=== PATIENT | male | born 1945 | race Caucasian/White ===

== ENCOUNTER 2017-12-28 12:40 | Emergency (ER) | payer MEDICARE, BC, SELFPAY ==
[2017-12-28 13:07] VITALS: BP 144/90; PULSE 85; RESP 20; TEMP 36.9; O2SAT 96
--- NOTE | 2017-12-28 14:02 | DI.RAD.S_ITS ---
PROCEDURE: XR CHEST 2V INDICATIONS: suspected sepsis TECHNIQUE: 2 views of the chest were acquired. COMPARISON: None. FINDINGS: Surgical changes and devices: None. Lungs and pleura: No pleural effusions or pneumothorax. Lungs are clear. Mediastinum: Mediastinal contours are normal. Heart size is normal. Bones and chest wall: No suspicious bony abnormalities. Soft tissues appear unremarkable. IMPRESSION: No acute pulmonary process. Dictated by: Lida Munguia M.D. on 12/28/2017 at 14:36 Approved by: Lida Munguia M.D. on 12/28/2017 at 14:37
[2017-12-28 14:10] LABS: INR 2.3 (0.9-1.3); Prothrombin Time 25.6 SECONDS (10.1-12.7)
[2017-12-28 14:13] LABS: PTT Partial Thromboplastin Tim 40 SECONDS (26.4-36.2)
[2017-12-28 14:17] LABS: Lactate (Lactic Acid) 2.2 mmol/L (0.7-2.1)
[2017-12-28 14:20] LABS: Add Manual Diff / Slide Review NO; Basophils Percent Auto 0.8 % (0-2); Eosinophils Percent Auto 1.5 % (2-4); Hematocrit 55.4 % (41-53); Hemoglobin 18.9 g/dL (13.5-17.5); Lymphocytes Percent Auto 23.7 % (25-40); Mean Corpuscular Hemoglobin 30.8 PG (26-34); Mean Corpuscular Volume 90.5 fL (80-100); Monocytes Percent Auto 7.3 % (3-14); Neutrophils Absolute Auto 4400 /uL (3000-5900); Neutrophils Percent Auto 66.7 % (50-75); Platelet Count 225 X10^3/uL (150-400); Red Blood Cell Count 6.12 X10^6/uL (4.5-5.9); Red Cell Distribution Width 13.7 % (11.6-14.8); White Blood Cell Count 6.6 X10^3/uL (4.5-11.0)
[2017-12-28 14:21] LABS: Alanine Aminotransferase 57 IU/L (21-72); Albumin 4.8 g/dL (3.5-5.0); Albumin Globulin Ratio 1.6 (1.0-2.8); Alkaline Phosphatase 85 U/L (38-126); Aspartate Aminotransferase 72 IU/L (17-59); BUN Creatinine Ratio 22.2 (6-22); Bilirubin Total 1.1 mg/dL (0.2-1.3); Blood Urea Nitrogen 20 mg/dL (9-20); Calcium 9.6 mg/dL (8.4-10.2); Carbon Dioxide 26 mmol/L (22-32); Chloride 102 mmol/L (98-107); Estimated Glomerular Filt Rate > 60.0 mL/min (>60); Glucose 101 mg/dL (80-110); HEMOLYSIS 43 (0-50); Lipase 177 U/L (23-300); Potassium 4.1 mmol/L (3.4-5.1); Sodium 142 mmol/L (137-145); Total Protein 7.8 g/dL (6.3-8.2)
[2017-12-28 14:36] LABS: Procalcitonin 0.07 ng/mL (<0.5)
--- NOTE | 2017-12-28 14:48 | PC.NURSE ---
Done from lobby
[2017-12-28] MEDS: SODIUM CHLORIDE 0.9% 1,000 ML 1000 ML IV (15:59)
[2017-12-28 16:53] LABS: B Type Natriuretic Peptide < 29.4 (<100)
[2017-12-28 18:05] LABS: Reflexed Lactate in 2 Hours Y
--- NOTE | 2017-12-28 18:24 | ED_ITS ---
HPI - Weakness General Chief complaint: Weakness Stated complaint: states he has no energy,dizziness,unstable on feet Time Seen by Provider: 12/28/17 18:11 Source: patient Mode of arrival: ambulatory Limitations: no limitations History of Present Illness HPI Narrative: Patient is a 72-year-old male presents with generalized weakness. History of AFib in Darsh[place] Romero. He was followed closely but the [facility] for Darshana Romero he was seen and evaluated 1 month ago for possible exacerbation of Darshana Romero on his medication was increased from 4 tablets to 5 tablets once a day. He also recently had a dental infection and was put on antibiotics he is no longer on antibiotics. He has had a steady decline and weakness however over the last 1 week it has been worse. He was sent here from his primary care office for evaluation. He had a fever last week but does not have any now. He does have a dry non productive cough worse with deep breathing which has been going on. He does get some shortness of breath with exertion he denies any chest pain no nausea vomiting or abdominal pain. He says he has actually lost 30 lb in the last 1 month. He has not had any change in his diuretic. MD Complaint: generalized weakness Related Data Home Medications Medication Instructions Recorded Confirmed Inv 3, 4-Diaminophyridine Base 1 tab PO QID 12/28/17 12/28/17 allopurinol 300 mg PO DAILY 12/28/17 12/28/17 armodafinil [Nuvigil] 75 mg PO QAM 12/28/17 12/28/17 benazepril 10 mg PO DAILY 12/28/17 12/28/17 digoxin 1 tab PO DAILY 12/28/17 12/28/17 furosemide 1 tab PO SEEINSTR 12/28/17 12/28/17 metoprolol succinate 150 mg PO DAILY 12/28/17 12/28/17 mycophenolate mofetil 2 tab PO BID 12/28/17 12/28/17 pyridostigmine bromide 1 tab PO TID 12/28/17 12/28/17 spironolactone 12.5 mg PO DAILY 12/28/17 12/28/17 tamsulosin 1 cap PO BEDTIME 12/28/17 12/28/17 testosterone cypionate 1 ml IM Q2W 12/28/17 12/28/17 [Depo-Testosterone] torsemide 20 mg PO SEEINSTR 12/28/17 12/28/17 tramadol-acetaminophen 1 tab PO Q4-6H PRN 12/28/17 12/28/17 warfarin 1 tab PO DAILY 12/28/17 12/28/17 Previous Rx's Medication Instructions Recorded albuterol sulfate 1 puff INHALATION Q4-6H PRN #8.5 12/28/17 gram Review of Systems Review of Systems All systems reviewed & are unremarkable except as noted in HPI and below Constitutional Denies body ache(s), Denies chills, Denies difficulty sleeping, Denies increased appetite and Reports lethargy Cardiovascular Denies chest pain, Denies irregular heart rhythm, Denies lightheadedness, Denies palpitations and Denies orthopnea Respiratory Reports as per HPI Gastrointestinal Gastrointestinal: Denies abdominal pain, Denies change in bowel habits, Denies diarrhea, Denies nausea and Denies vomiting Musculoskeletal Denies back pain, Denies muscle weakness, Denies numbness and Denies tingling Integumentary/Breasts Denies pruritus, Denies erythema, Denies rash and Denies wounds Neurologic Denies numbness and Denies tingling Endocrine Denies palpitations [facility] Social History Smoking Status: Never smoker Exam Initial Vital Signs Initial Vital Signs: Vital Signs Temperature 98.4 F 12/28/17 13:07 Pulse Rate 85 12/28/17 13:07 Respiratory Rate 12/28/17 13:07 Blood Pressure 144/90 H 12/28/17 13:07 Pulse Oximetry 96 12/28/17 13:07 GENERAL: Alert well-appearing elderly male in no acute distress HEENT: Head atraumatic,EOMI, pupils reactive, face symmetric, [moist] mucous membranes CARDIOVASCULAR: Regular rate and rhythm without murmurs, rubs or gallops. RESPIRATORY: Breath sounds equal bilaterally, no wheezes rales or rhonchi. Cough with deep breath dry hacking ABDOMEN: Soft, nontender. Normoactive bowel sounds all 4 quadrants. No guarding or rebound. EXTREMITIES: Normal range of motion, no clubbing or edema. Neurovascularly intact NEUROLOGICAL: Alert and oriented x4.Normal gait and speech. Cranial nerves II through XII grossly intact. Senior [employer] strength equal bilaterally SKIN: Warm, dry, no laceration, no petechiae, no rashes or lesions. Course Orders Ordered: ED Orders 12/28/17 13:20 Complete Blood Count AUTO DIFF Stat Comprehensive Metabolic Panel Stat Lactate (Lactic Acid) Stat Lipase Stat Partial Thromboplastin Time Stat Procalcitonin Stat Prothrombin Time INR Stat 12/28/17 14:02 XR chest 2V Stat Blood Culture Stat 12/28/17 18:19 Lactate 4HR (Lactic Acid Rflx) Stat Discontinued Medications Albuterol (Ventolin) 2.5 mg INH NOW ONE Stop: 12/28/17 18:35 Last Admin: 12/28/17 18:39 Dose: 2.5 mg Sodium Chloride (Normal Saline 0.9%) 1,000 mls @ 1,000 mls/hr IV BOLUS ONE Stop: 12/28/17 15:01 Last Infusion: 12/28/17 17:47 Dose: 0 mls/hr Admin: 12/28/17 15:59 Dose: 1,000 mls/hr Vital Signs - 8 hr 12/28/17 13:07 12/28/17 18:37 12/28/17 18:41 Temperature 98.4 F Pulse Rate 85 76 76 Respiratory Rate 20 20 14 Blood Pressure 144/90 H Blood Pressure [Right Arm] 118/89 Pulse Oximetry 96 94 97 12/28/17 19:19 Temperature Pulse Rate 70 Respiratory Rate 20 Blood Pressure Blood Pressure [Right Arm] 120/79 Pulse Oximetry 98 MDM - Weakness Lab Data Attestation: I reviewed the patient's lab results. Result diagrams: 12/28/17 13:20 12/28/17 13:20 Lab Results 12/28/17 12/28/17 12/28/17 Range/Units 13:20 13:20 13:20 WBC 6.6 (4.5-11.0) X10^3/uL RBC 6.12 H (4.5-5.9) X10^6/uL Hgb 18.9 H (13.5-17.5) g/dL Hct 55.4 H (41-53) % MCV 90.5 (80-100) fL MCH 30.8 (26-34) PG MCHC 34.0 (30-36) % RDW 13.7 (11.6-14.8) % Plt Count 225 (150-400) X10^3/uL Neut % (Auto) 66.7 (50-75) % Lymph % (Auto) 23.7 L (25-40) % Motley % (Auto) 7.3 (3-14) % Eos % (Auto) 1.5 L (2-4) % Baso % (Auto) 0.8 (0-2) % Neut # (Auto) 4400 (2606-0611) /uL PT 25.6 H (10.1-12.7) SECONDS INR 2.3 H (0.9-1.3) APTT 40 H (26.4-36.2) SECONDS Sodium (137-145) mmol/L Potassium (3.4-5.1) mmol/L Chloride (98-107) mmol/L Carbon Dioxide (22-32) mmol/L BUN (9-20) mg/dL Creatinine (0.66-1.25) mg/dL Estimated GFR (>60) mL/min BUN/Creatinine Ratio (6-22) Glucose (80-110) mg/dL Lactate (0.7-2.1) mmol/L Calcium (8.4-10.2) mg/dL Total Bilirubin (0.2-1.3) mg/dL AST (17-59) IU/L ALT (21-72) IU/L Alkaline Phosphatase (38-126) U/L B-Natriuretic Peptide (<100) Total Protein (6.3-8.2) g/dL Albumin (3.5-5.0) g/dL Globulin (1.7-4.1) g/dL Albumin/Globulin Ratio (1.0-2.8) Lipase (23-300) U/L Procalcitonin 0.07 (<0.5) ng/mL 12/28/17 12/28/17 12/28/17 Range/Units 13:20 13:20 18:19 WBC (4.5-11.0) X10^3/uL RBC (4.5-5.9) X10^6/uL Hgb (13.5-17.5) g/dL Hct (41-53) % MCV (80-100) fL MCH (26-34) PG MCHC (30-36) % RDW (11.6-14.8) % Plt Count (150-400) X10^3/uL Neut % (Auto) (50-75) % Lymph % (Auto) (25-40) % Motley % (Auto) (3-14) % Eos % (Auto) (2-4) % Baso % (Auto) (0-2) % Neut # (Auto) (6250-0986) /uL PT (10.1-12.7) SECONDS INR (0.9-1.3) APTT (26.4-36.2) SECONDS Sodium 142 (137-145) mmol/L Potassium 4.1 (3.4-5.1) mmol/L Chloride 102 (98-107) mmol/L Carbon Dioxide 26 (22-32) mmol/L BUN 20 (9-20) mg/dL Creatinine 0.90 (0.66-1.25) mg/dL Estimated GFR > 60.0 (>60) mL/min BUN/Creatinine Ratio 22.2 H (6-22) Glucose 101 (80-110) mg/dL Lactate 2.2 H 1.6 (0.7-2.1) mmol/L Calcium 9.6 (8.4-10.2) mg/dL Total Bilirubin 1.1 (0.2-1.3) mg/dL AST 72 H (17-59) IU/L ALT 57 (21-72) IU/L Alkaline Phosphatase 85 (38-126) U/L B-Natriuretic Peptide (<100) Total Protein 7.8 (6.3-8.2) g/dL Albumin 4.8 (3.5-5.0) g/dL Globulin 3.0 (1.7-4.1) g/dL Albumin/Globulin Ratio 1.6 (1.0-2.8) Lipase 177 (23-300) U/L Procalcitonin (<0.5) ng/mL 12/28/17 Range/Units Unknown WBC (4.5-11.0) X10^3/uL RBC (4.5-5.9) X10^6/uL Hgb (13.5-17.5) g/dL Hct (41-53) % MCV (80-100) fL MCH (26-34) PG MCHC (30-36) % RDW (11.6-14.8) % Plt Count (150-400) X10^3/uL Neut % (Auto) (50-75) % Lymph % (Auto) (25-40) % Motley % (Auto) (3-14) % Eos % (Auto) (2-4) % Baso % (Auto) (0-2) % Neut # (Auto) (4397-3132) /uL PT (10.1-12.7) SECONDS INR (0.9-1.3) APTT (26.4-36.2) SECONDS Sodium (137-145) mmol/L Potassium (3.4-5.1) mmol/L Chloride (98-107) mmol/L Carbon Dioxide (22-32) mmol/L BUN (9-20) mg/dL Creatinine (0.66-1.25) mg/dL Estimated GFR (>60) mL/min BUN/Creatinine Ratio (6-22) Glucose (80-110) mg/dL Lactate (0.7-2.1) mmol/L Calcium (8.4-10.2) mg/dL Total Bilirubin (0.2-1.3) mg/dL AST (17-59) IU/L ALT (21-72) IU/L Alkaline Phosphatase (38-126) U/L B-Natriuretic Peptide < 29.4 (<100) Total Protein (6.3-8.2) g/dL Albumin (3.5-5.0) g/dL Globulin (1.7-4.1) g/dL Albumin/Globulin Ratio (1.0-2.8) Lipase (23-300) U/L Procalcitonin (<0.5) ng/mL Urine Dip Bedside Urine Glucose Negative Bedside Urine Bilirubin - Negative Bedside Urine Ketone - Negative Urine Specific [place] 1.015 Bedside Urine Occult Blood - Negative Bedside Urine pH 6.0 Bedside Urine Protein - Negative Bedside Urine Urobilinogen - Negative Bedside Urine Nitrite - Negative Bedside Urine Leukocytes - Negative Esterase Imaging Data Chest x-ray: Radiologist's impression: PROCEDURE: XR CHEST 2V INDICATIONS: suspected sepsis TECHNIQUE: 2 views of the chest were acquired. COMPARISON: None. FINDINGS: Surgical changes and devices: None. Lungs and pleura: No pleural effusions or pneumothorax. Lungs are clear. Mediastinum: Mediastinal contours are normal. Heart size is normal. Bones and chest wall: No suspicious bony abnormalities. Soft tissues appear unremarkable. IMPRESSION: No acute pulmonary process. Dictated by: Lida Munguia M.D. on 12/28/2017 at 14:36 ECG Data Attestation: I personally reviewed and interpreted this ECG as follows: Prior ECG tracings: not available for review Interpretation: Normal sinus rhythm rate [address] changes no priors to compare no Q-waves, no T-wave inversions. MDM Narrative Medical decision making narrative: The patient initial lactic acid mildly elevated at 2.2 BP after 1 L bolus is 1.6. He has no leukocytosis signs or symptoms of infection. X-ray is clear. He does have quite a bit of a dry bronchospasm coughing which does improve with albuterol. He has no hypoxia, and does not have signs or symptoms consistent with CHF or PE or ACS. He is a little hemoconcentrated may be sign of slight dehydration. He has urinated many times with this 1 L. Recommend that he follow up with his regular doctor. At this point he does feel little bit better than when he came in. This has been a slow ongoing gradual decline. Discharge Plan Departure Patient Disposition: Home Clinical Impression: Mild intermittent reactive airway disease Instructions: DI for Reactive Airway Disease-Adult Activity Restrictions/Additional Instructions: *You have been diagnosed with reactive airway disease *What to do: At this time that chest x-ray and blood work are within normal limits *Continue to take medications as directed Albuterol with inhaler every 4 hr if needed for coughing spells or shortness of breath *Follow up with your primary care provider in 2-3 days, follow up with [facility] with you're specialist *Return to ER if you should have fever, increasing weakness, increasing shortness of breath any new, worsening or concerning symptoms Prescriptions: New albuterol sulfate 90 mcg/actuation HFA aerosol inhaler 1 puff INHALATION Q4-6H PRN (Reason: shortness of breath or wheezing) Qty: 8.5 RF: 0 No Action torsemide 20 mg tablet 20 mg PO SEEINSTR RF: 0 tramadol-acetaminophen 37.5-325 mg tablet 1 tab PO Q4-6H PRN (Reason: pain from root canal) RF: 0 metoprolol succinate 100 mg tablet extended release 24 hr 150 mg PO DAILY RF: 0 spironolactone 25 mg tablet 12.5 mg PO DAILY RF: 0 mycophenolate mofetil 500 mg tablet 2 tab PO BID RF: 0 tamsulosin 0.4 mg capsule 1 cap PO BEDTIME RF: 0 furosemide 80 mg tablet 1 tab PO SEEINSTR RF: 0 pyridostigmine bromide 60 mg tablet 1 tab PO TID RF: 0 warfarin 5 mg tablet 1 tab PO DAILY RF: 0 benazepril 20 mg tablet 10 mg PO DAILY RF: 0 allopurinol 300 mg tablet 300 mg PO DAILY RF: 0 digoxin 125 mcg tablet 1 tab PO DAILY RF: 0 testosterone cypionate [Depo-Testosterone] 200 mg/mL oil 1 ml IM Q2W RF: 0 armodafinil [Nuvigil] 150 mg Tablet 75 mg PO QAM RF: 0 Inv 3, 4-Diaminophyridine Base 10 MG tablet 1 tab PO QID RF: 0
[2017-12-28 18:37] VITALS: BP 118/89; PULSE 76; RESP 20; O2SAT 94
[2017-12-28 18:37] LABS: Lactate 2HR (Lactic Acid Rflx) 1.6 mmol/L (0.7-2.1)
[2017-12-28] MEDS: ALBUTEROL 2.5 MG/3 ML NEB (ADULT) INH (18:39)
[2017-12-28 18:41] VITALS: PULSE 76; RESP 14; O2SAT 97
[2017-12-28 19:19] VITALS: BP 120/79; PULSE 70; RESP 20; O2SAT 98
== END 2017-12-28 19:57 | disposition home or self-care (01) ==
PROVIDERS: Emergency Medicine; Emergency Provider Emergency Medicine
DX: J45.20 Mild intermittent asthma, uncomplicated (principal); R53.1 Weakness
CPT/HCPCS: 71046; 80053; 81003; 83605; 83690; 83880; 84145; 85025; 85610; 85730; 87040; 93005; 94640; 96360; 96361; 99283; 99285; J7613

== ENCOUNTER → 2018-02-22 14:04 | Outpatient (CLI) | payer MEDICARE, BC, SELFPAY ==
[2018-02-22 15:29] LABS: INR 2.2 (0.9-1.3); Prothrombin Time 24.5 SECONDS (10.1-12.7)
== END ==
PROVIDERS: Visit Provider Family Medicine
DX: I48.1 Persistent atrial fibrillation (principal)
CPT/HCPCS: 36415; 85610

== ENCOUNTER → 2020-08-10 11:23 | Outpatient (CLI) | payer MEDICARE, BC, SELFPAY ==
[2020-08-10 13:54] LABS: Bacteria Urine Many (>30); Culture Indicated Urine Specimen Cultured; RBC Urine 5-10/HPF (0-5/HPF); WBC Urine 5-10/HPF (0-5/HPF)
[2020-08-10 13:58] LABS: Add Manual Diff / Slide Review NO; Basophils Absolute Auto 100 /uL (0-100); Basophils Percent Auto 0.8 % (0-2); Eosinophils Absolute Auto 100 /uL (0-450); Eosinophils Percent Auto 1.9 % (2-4); Hematocrit 41.6 % (41-53); Hemoglobin 14.1 g/dL (13.5-17.5); Lymphocytes Absolute Auto 2000 /uL (1100-4500); Lymphocytes Percent Auto 29.2 % (25-40); Mean Corpuscular HGB Conc 33.9 % (30-36); Mean Corpuscular Hemoglobin 31.1 PG (26-34); Monocytes Absolute Auto 600 /uL (0-900); Monocytes Percent Auto 9.5 % (3-14); Neutrophils Absolute Auto 3900 /uL (1500-7000); Neutrophils Percent Auto 58.6 % (50-75); Platelet Count 183 X10^3/uL (150-400); Red Blood Cell Count 4.52 X10^6/uL (4.5-5.9); Red Cell Distribution Width 13.5 % (11.6-14.8); White Blood Cell Count 6.7 X10^3/uL (4.5-11.0)
[2020-08-10 14:15] LABS: Alanine Aminotransferase 34 IU/L (<50); Albumin 4.3 g/dL (3.5-5.0); Albumin Globulin Ratio 1.6 (1.0-2.8); Alkaline Phosphatase 127 U/L (38-126); Aspartate Aminotransferase 50 IU/L (17-59); BUN Creatinine Ratio 19.6 (6-22); Bilirubin Total 0.9 mg/dL (0.2-1.3); Blood Urea Nitrogen 20 mg/dL (9-20); Calcium 9.5 mg/dL (8.4-10.2); Carbon Dioxide 30 mmol/L (22-32); Chloride 103 mmol/L (98-107); Estimated Glomerular Filt Rate > 60.0 mL/min (>60); Globulin 2.7 g/dL (1.7-4.1); Glucose 83 mg/dL (80-110); HEMOLYSIS < 15 (0-50); Potassium 4.4 mmol/L (3.4-5.1); Sodium 140 mmol/L (137-145)
== END ==
PROVIDERS: Referring Provider Student in an Organized Health Care Education/Training Program; Visit Provider Student in an Organized Health Care Education/Training Program
DX: R31.9 Hematuria, unspecified (principal); N39.0 Urinary tract infection, site not specified
CPT/HCPCS: 36415; 80053; 81015; 85025; 87077; 87086; 87186

== ENCOUNTER 2020-12-14 14:30 | Emergency (ER) | payer MEDICARE, BC, SELFPAY ==
[2020-12-14] VITALS (87 sets, daily range): BP systolic 76–137; BP diastolic 43–72; PULSE 22–65; RESP 4–40; TEMP 36.6; O2SAT 86–100
[2020-12-14] MEDS: ATROPINE 1 MG/10 ML SYRINGE IV (14:32)
--- NOTE | 2020-12-14 14:34 | DI.RAD.S_ITS ---
PROCEDURE: XR CHEST 1V INDICATIONS: bradycardic TECHNIQUE: One view of the chest was acquired. COMPARISON: [facility], CR, XR CHEST 2V, 12/28/2017, 13:54. FINDINGS: Surgical changes and devices: None. Defibrillator pads are seen. Lungs and pleura: An incomplete inspiratory result is noted, causing a crowded appearance to the lung markings. No focal infiltrates are seen. No pneumothorax or significant pleural effusions are seen. Diffuse fatty liver infiltration is noted. Mediastinum: Mediastinal contours appear normal. Heart size is mildly enlarged. Bones and chest wall: No suspicious bony lesions. Age-appropriate bony degenerative changes are seen. Overlying soft tissues appear unremarkable. IMPRESSION: Low lung volumes, with mild interstitial prominence, likely related to artifact or mild pulmonary edema. Dictated by: Diony Tolentino M.D. on 12/14/2020 at 14:18 Approved by: Diony Tolentino M.D. on 12/14/2020 at 14:19
--- NOTE | 2020-12-14 14:40 | DI.CT.S_ITS ---
PROCEDURE: CT HEAD/BRAIN WO CON INDICATIONS: syncope TECHNIQUE: Noncontrast 4.5 mm thick angled axial sections acquired from the foramen magnum to the vertex, with coronal and sagittal reformats. For radiation dose reduction, the following was used: automated exposure control, adjustment of mA and/or kV according to patient size. COMPARISON: None. FINDINGS: Image quality: Excellent. CSF spaces: Basal cisterns are patent. No extra-axial fluid collections. The ventricles are symmetric in size and shape. Brain: There is mild focal low density seen involving the left emily, as on series 2, image 13. No intracranial bleeds or masses. There is cerebral volume loss for age, with resultant ventricular and sulcal prominence. There are periventricular and deep white matter chronic small vessel ischemic changes. There is intracranial internal carotid artery atherosclerosis. Skull and face: Calvarium and visualized facial bones appear intact, without suspicious lesions. Sinuses: Visualized sinuses and mastoids are clear. IMPRESSION: No acute intracranial hemorrhage is seen. Focal low density can be seen involving the left emily. Differential diagnosis includes artifact and subacute infarction. If it would be helpful for clinical management decision making, please consider a dedicated brain MRI for further evaluation (assuming that there is no contraindication). Dictated by: Diony Tolentino M.D. on 12/14/2020 at 14:27 Approved by: Diony Tolentino M.D. on 12/14/2020 at 14:29
[2020-12-14 14:43] LABS: Add Manual Diff / Slide Review NO; Basophils Absolute Auto 100 /uL (0-100); Basophils Percent Auto 1.1 % (0-2); Eosinophils Absolute Auto 200 /uL (0-450); Eosinophils Percent Auto 2.6 % (2-4); Hematocrit 41.9 % (41-53); Hemoglobin 13.7 g/dL (13.5-17.5); Lymphocytes Absolute Auto 2100 /uL (1100-4500); Lymphocytes Percent Auto 26.5 % (25-40); Mean Corpuscular HGB Conc 32.8 % (30-36); Mean Corpuscular Hemoglobin 30.7 PG (26-34); Mean Corpuscular Volume 93.4 fL (80-100); Monocytes Absolute Auto 900 /uL (0-900); Neutrophils Absolute Auto 4600 /uL (1500-7000); Neutrophils Percent Auto 58.8 % (50-75); Platelet Count 184 X10^3/uL (150-400); Red Blood Cell Count 4.49 X10^6/uL (4.5-5.9); Red Cell Distribution Width 13.9 % (11.6-14.8); White Blood Cell Count 7.8 X10^3/uL (4.5-11.0)
[2020-12-14 14:50] LABS: Magnesium 2.5 mg/dL (1.6-2.3); Phosphorous 3.7 mg/dL (2.3-3.7)
[2020-12-14 14:51] LABS: Alanine Aminotransferase 30 IU/L (<50); Albumin 4.7 g/dL (3.5-5.0); Albumin Globulin Ratio 1.7 (1.0-2.8); Alkaline Phosphatase 126 U/L (38-126); Aspartate Aminotransferase 51 IU/L (17-59); BUN Creatinine Ratio 27.5 (6-22); Bilirubin Total 0.8 mg/dL (0.2-1.3); Blood Urea Nitrogen 47 mg/dL (9-20); Calcium 9.3 mg/dL (8.4-10.2); Carbon Dioxide 23 mmol/L (22-32); Chloride 108 mmol/L (98-107); Creatine Kinase 227 U/L (55-170); Estimated Glomerular Filt Rate 39.2 mL/min (>60); Globulin 2.8 g/dL (1.7-4.1); Glucose 106 mg/dL (80-110); Lipase 365 U/L (23-300); Sodium 140 mmol/L (137-145); Total Protein 7.5 g/dL (6.3-8.2)
[2020-12-14 14:55] LABS: Potassium 5.1 mmol/L (3.4-5.1)
[2020-12-14] MEDS: GLUCAGON,HUMAN RECOMBINANT 1 MG/ML VIAL 5 MG IV (14:56)
[2020-12-14] MEDS: SODIUM CHLORIDE 0.9% 1,000 ML 1000 ML IV (14:57)
[2020-12-14 14:59] LABS: NT-proBNP (BNP-Adult 18+) 2910 pg/mL (<450)
[2020-12-14] MEDS: ATROPINE 1 MG/10 ML SYRINGE 0.5 MG IV (15:00)
[2020-12-14 15:02] LABS: Troponin I 0.016 ng/mL (0.01-0.034)
[2020-12-14 15:02] LABS: INR 1.1 (0.9-1.3); Prothrombin Time 12.6 SECONDS (10.1-12.7)
--- NOTE | 2020-12-14 15:04 | ED_ITS ---
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 He was found by EMS have a heart rate in the 20s. He is awake and alert for overall extremely poor historian. 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 He was found on the floor by a good friend who called EMS Related Data Home Medications Medication Instructions Recorded Confirmed Inv 3, 4-Diaminophyridine Base 1 tab PO QID 12/28/17 11/17/20 allopurinol 300 mg tablet 300 mg PO DAILY 12/28/17 11/17/20 armodafinil 150 mg tablet (Nuvigil) 75 mg PO QAM 12/28/17 11/17/20 benazepril 20 mg tablet 10 mg PO DAILY 12/28/17 11/17/20 digoxin 125 mcg (0.125 mg) tablet 1 tab PO DAILY 12/28/17 11/17/20 furosemide 80 mg tablet 1 tab PO SEEINSTR 12/28/17 11/17/20 metoprolol succinate 100 mg 150 mg PO DAILY 12/28/17 11/17/20 tablet,extended release 24 hr mycophenolate mofetil 500 mg tablet 2 tab PO BID 12/28/17 11/17/20 pyridostigmine bromide 60 mg tablet 1 tab PO TID 12/28/17 11/17/20 spironolactone 25 mg tablet 12.5 mg PO DAILY 12/28/17 11/17/20 tamsulosin 0.4 mg capsule 1 cap PO BEDTIME 12/28/17 11/17/20 testosterone cypionate 200 mg/mL 1 ml IM Q2W 12/28/17 11/17/20 intramuscular oil torsemide 20 mg tablet 20 mg PO SEEINSTR 12/28/17 11/17/20 tramadol 37.5 mg-acetaminophen 325 1 tab PO Q4-6H PRN 12/28/17 11/17/20 mg tablet warfarin 5 mg tablet 1 tab PO DAILY 12/28/17 11/17/20 Previous Rx's Medication Instructions Recorded albuterol sulfate 90 mcg/actuation 1 puff INHALATION Q4-6H PRN #8.5 12/28/17 aerosol inhaler gram Allergies Allergy/AdvReac Type Severity Reaction Status Date / Time testosterone Allergy Unknown Verified 12/14/20 14:45 Review of Systems Review of Systems Narrative: Limited due to medical condition Cardiovascular Cardiovascular: Reports as per HPI, Reports syncope, Denies leg edema and Denies lightheadedness Neurologic Neurologic: Reports syncope Patient History Social History Smoking Status: Never smoker Smoking Status: Never smoker alcohol intake frequency: holidays/special occasions only Substance Use Type: does not use Exam Initial Vital Signs Initial Vital Signs: Vital Signs Temperature 98 F 12/14/20 14:30 Pulse Rate 22 L 12/14/20 14:30 Respiratory Rate 14 12/14/20 14:30 Blood Pressure 117/57 L 12/14/20 14:30 Pulse Oximetry 100 12/14/20 14:30 GENERAL: Alert male follows commands slightly diaphoretic HEENT: Head atraumatic,EOMI, pupils reactive, CARDIOVASCULAR: Bradycardic no murmur RESPIRATORY: Breath sounds equal bilaterally, no wheezes rales or rhonchi. ABDOMEN: Soft, nontender. Normoactive bowel sounds all 4 quadrants. No guarding or rebound. EXTREMITIES: Normal range of motion, no clubbing or edema. 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 SKIN: Warm, dry, no laceration, no petechiae, no rashes or lesions. Procedures Central Line Placement Right IJ: Time Out Performed: Yes Patient Placed on Monitor/Pulse Ox: Yes Central Line Prep: Chlorhexidine scrub Local Anesthetic: lidocaine 1% Amount of anesthesia used (mL): 5 Ultrasound Used for Placement: Yes Central Line Lumen Inserted: triple Post Procedure: sutured in place, good blood return, all ports aspirated, flushed, capped and sterile dressing applied Post Procedure X-Ray: tip of catheter in good position Patient Tolerated Procedure: Well Course Orders Ordered: ED Orders 12/14/20 14:00 Complete Blood Count AUTO DIFF Stat Comprehensive Metabolic Panel Stat Lipase Stat Magnesium Stat NT-proBNP (BNP-Adult 18+) Stat Phosphorous Stat Troponin & CK Cardiac Panel Stat 12/14/20 14:30 COVID19 -Nasal swab/Pre-Proc Stat 12/14/20 14:34 XR chest 1V Stat EKG-12 Lead Stat 12/14/20 14:40 CT head/brain wo con Stat 12/14/20 14:45 DIG [Digoxin] Stat Partial Thromboplastin Time Stat Prothrombin Time INR Stat 12/14/20 14:50 Urinalysis and Microscopic Stat 12/14/20 15:00 Lactate (Lactic Acid) Stat 12/14/20 16:00 XR chest 1V Stat Discontinued Medications Atropine Sulfate (Atropine 1 Mg/10 Ml Syringe) 0.5 mg IV NOW ONE Stop: 12/14/20 14:58 Last Admin: 12/14/20 15:00 Dose: 0.5 mg Documented by: SHIVANI Furosemide (Furosemide 40 Mg/4 Ml Vial) 40 mg IV NOW ONE Stop: 12/14/20 17:23 Last Admin: 12/14/20 17:25 Dose: 40 mg Documented by: SHIVANI Glucagon (Glucagon,Human Recombinant 1 Mg/Ml Vial) 5 mg IV NOW ONE Stop: 12/14/20 14:36 Last Admin: 12/14/20 14:56 Dose: 1 mg Documented by: SHIVANI Sodium Chloride (Normal Saline 0.9%) 1,000 mls @ 1,000 mls/hr IV CONT PIPPA Last Infusion: 12/14/20 17:31 Dose: 0 mls/hr Documented by: Infusion: 12/14/20 17:00 Dose: 50 mls/hr Documented by: Infusion: 12/14/20 15:15 Dose: 150 mls/hr Documented by: Admin: 12/14/20 14:57 Dose: 1,000 mls/hr Documented by: SHIVANI Dopamine HCl/Dextrose (Dopamine 400 Mg-D5w 250 Ml) 400 mg in 250 mls @ 23.156 mls/hr IV TITRATE PIPPA; Protocol Last Titration: 12/14/20 17:32 Dose: 0 mcg/kg/min, 0 mls/hr Documented by: Titration: 12/14/20 17:00 Dose: 7.5 mcg/kg/min, 34.734 mls/hr Documented by: Titration: 12/14/20 16:00 Dose: 5 mcg/kg/min, 23.156 mls/hr Documented by: Titration: 12/14/20 15:43 Dose: 10 mcg/kg/min, 46.313 mls/hr Documented by: Admin: 12/14/20 15:34 Dose: 5 mcg/kg/min, 23.156 mls/hr Documented by: SHIVANI Vital Signs Vital signs: Vital Signs - 8 hr 12/14/20 14:30 12/14/20 14:48 12/14/20 14:49 Temperature 98 F Pulse Rate 22 L 43 L 63 Respiratory Rate 14 30 H 18 Blood Pressure 117/57 L 127/62 Pulse Oximetry 100 97 12/14/20 14:50 12/14/20 14:55 12/14/20 14:56 Temperature Pulse Rate 40 L 35 L 34 L Respiratory Rate 29 H 25 H 23 Blood Pressure 111/55 L 97/55 L Pulse Oximetry 95 100 100 12/14/20 15:00 12/14/20 15:05 12/14/20 15:08 Temperature Pulse Rate 34 L 45 L 43 L Respiratory Rate 25 H 23 27 H Blood Pressure 99/52 L 120/60 Pulse Oximetry 100 100 100 12/14/20 15:10 12/14/20 15:14 12/14/20 15:15 Temperature Pulse Rate 41 L 43 L 42 L Respiratory Rate 25 H 40 H 40 H Blood Pressure 137/64 Pulse Oximetry 100 100 12/14/20 15:23 12/14/20 15:25 12/14/20 15:30 Temperature Pulse Rate 35 L 36 L 36 L Respiratory Rate 20 30 H 29 H Blood Pressure 104/54 L 110/58 L Pulse Oximetry 97 100 100 12/14/20 15:32 12/14/20 15:35 12/14/20 15:40 Temperature Pulse Rate 31 L 31 L 32 L Respiratory Rate 23 26 H Blood Pressure 121/59 L 105/53 L Pulse Oximetry 99 97 94 12/14/20 15:41 12/14/20 15:42 12/14/20 15:44 Temperature Pulse Rate 39 L 40 L 47 L Respiratory Rate 17 17 5 L Blood Pressure 80/46 L 81/43 L 76/43 L Pulse Oximetry 98 96 95 12/14/20 15:45 12/14/20 15:47 12/14/20 15:48 Temperature Pulse Rate 47 L 47 L 48 L Respiratory Rate 4 L 5 L 6 L Blood Pressure 86/48 L 91/51 L 94/53 L Pulse Oximetry 99 99 98 12/14/20 15:49 12/14/20 15:50 12/14/20 15:51 Temperature Pulse Rate 49 L 51 L 49 L Respiratory Rate 6 L 7 L 6 L Blood Pressure 97/54 L 97/51 L 101/69 Pulse Oximetry 98 97 99 12/14/20 15:53 12/14/20 15:54 12/14/20 15:55 Temperature Pulse Rate 47 L 45 L 45 L Respiratory Rate 27 H 30 H 21 Blood Pressure 94/53 L 93/52 L 92/52 L Pulse Oximetry 98 98 97 12/14/20 15:56 12/14/20 15:57 12/14/20 15:59 Temperature Pulse Rate 45 L 45 L 45 L Respiratory Rate 27 H 27 H 24 Blood Pressure 94/53 L 94/54 L 94/53 L Pulse Oximetry 97 95 92 12/14/20 16:00 12/14/20 16:01 12/14/20 16:02 Temperature Pulse Rate 46 L 47 L 47 L Respiratory Rate 19 27 H 22 Blood Pressure 94/54 L 95/52 L 93/52 L Pulse Oximetry 92 90 L 90 L 12/14/20 16:03 12/14/20 16:05 12/14/20 16:06 Temperature Pulse Rate 46 L 41 L 43 L Respiratory Rate 22 30 H 24 Blood Pressure 98/54 L 102/55 L 92/51 L Pulse Oximetry 90 L 91 89 L 12/14/20 16:07 12/14/20 16:08 12/14/20 16:10 Temperature Pulse Rate 43 L 44 L 44 L Respiratory Rate 23 20 23 Blood Pressure 93/53 L 99/51 L 96/51 L Pulse Oximetry 89 L 89 L 91 12/14/20 16:11 12/14/20 16:12 12/14/20 16:13 Temperature Pulse Rate 45 L 43 L 43 L Respiratory Rate 25 H 18 20 Blood Pressure 97/52 L 88/49 L 91/53 L Pulse Oximetry 90 L 92 92 12/14/20 16:14 12/14/20 16:15 12/14/20 16:16 Temperature Pulse Rate 43 L 44 L 43 L Respiratory Rate 23 23 24 Blood Pressure 96/52 L 98/54 L Pulse Oximetry 90 L 90 L 92 12/14/20 16:17 12/14/20 16:18 12/14/20 16:19 Temperature Pulse Rate 43 L 43 L 44 L Respiratory Rate 27 H 28 H 27 H Blood Pressure 97/51 L 95/52 L 98/50 L Pulse Oximetry 91 92 90 L 12/14/20 16:20 12/14/20 16:22 12/14/20 16:23 Temperature Pulse Rate 43 L 45 L 44 L Respiratory Rate 24 26 H 25 H Blood Pressure 93/54 L 96/51 L 102/54 L Pulse Oximetry 91 88 L 93 12/14/20 16:24 12/14/20 16:25 12/14/20 16:26 Temperature Pulse Rate 43 L 44 L 45 L Respiratory Rate 27 H 23 34 H Blood Pressure 103/54 L 97/54 L Pulse Oximetry 91 90 L 89 L 12/14/20 16:27 12/14/20 16:28 12/14/20 16:30 Temperature Pulse Rate 44 L 43 L 46 L Respiratory Rate 31 H 40 H Blood Pressure 96/52 L 93/50 L 90/51 L Pulse Oximetry 90 L 91 86 L 12/14/20 16:31 12/14/20 16:33 12/14/20 16:34 Temperature Pulse Rate 47 L 50 L Respiratory Rate 22 13 Blood Pressure 112/72 97/53 L 94/53 L Pulse Oximetry 90 L 92 12/14/20 17:01 12/14/20 17:02 12/14/20 17:03 Temperature Pulse Rate 45 L 44 L 44 L Respiratory Rate 30 H 28 H 19 Blood Pressure 110/57 L 107/53 L Pulse Oximetry 96 95 94 12/14/20 17:04 12/14/20 17:05 12/14/20 17:06 Temperature Pulse Rate 44 L 44 L 44 L Respiratory Rate 20 23 20 Blood Pressure 105/53 L 107/54 L Pulse Oximetry 96 96 96 12/14/20 17:07 12/14/20 17:08 12/14/20 17:09 Temperature Pulse Rate 44 L 54 L 59 L Respiratory Rate 21 27 H 20 Blood Pressure 113/61 103/51 L Pulse Oximetry 97 98 99 12/14/20 17:10 12/14/20 17:11 12/14/20 17:12 Temperature Pulse Rate 59 L 52 L 48 L Respiratory Rate 24 27 H 22 Blood Pressure 119/58 L 114/54 L Pulse Oximetry 96 98 98 12/14/20 17:13 12/14/20 17:14 12/14/20 17:15 Temperature Pulse Rate 65 63 65 Respiratory Rate 17 15 20 Blood Pressure 118/57 L 119/58 L Pulse Oximetry 97 96 97 12/14/20 17:16 12/14/20 17:17 12/14/20 17:18 Temperature Pulse Rate 64 63 61 Respiratory Rate 24 25 H 26 H Blood Pressure 112/57 L 120/57 L Pulse Oximetry 98 98 97 12/14/20 17:19 12/14/20 17:20 12/14/20 17:21 Temperature Pulse Rate 64 61 61 Respiratory Rate 25 H 18 24 Blood Pressure 122/60 122/59 L 119/58 L Pulse Oximetry 95 99 97 12/14/20 17:22 12/14/20 17:23 12/14/20 17:24 Temperature Pulse Rate 61 62 61 Respiratory Rate 25 H 22 33 H Blood Pressure Pulse Oximetry 96 95 MDM - Arrhythmia/Palpitations Lab Data Result diagrams: 12/14/20 14:00 12/14/20 14:00 Labs: Lab Results 12/14/20 12/14/20 12/14/20 Range/Units 14:00 14:00 14:00 WBC 7.8 (4.5-11.0) X10^3/uL RBC 4.49 L (4.5-5.9) X10^6/uL Hgb 13.7 (13.5-17.5) g/dL Hct 41.9 (41-53) % MCV 93.4 (80-100) fL MCH 30.7 (26-34) PG MCHC 32.8 (30-36) % RDW 13.9 (11.6-14.8) % Plt Count 184 (150-400) X10^3/uL Neut % (Auto) 58.8 (50-75) % Lymph % (Auto) 26.5 (25-40) % [place] % (Auto) 11.0 (3-14) % Eos % (Auto) 2.6 (2-4) % Baso % (Auto) 1.1 (0-2) % Neut # (Auto) 4600 (7975-2635) /uL Lymph # (Auto) 2100 (3722-5726) /uL [place] # (Auto) 900 (0-900) /uL Eos # (Auto) 200 (0-450) /uL Baso # (Auto) 100 (0-100) /uL PT (10.1-12.7) SECONDS INR (0.9-1.3) APTT (26.4-36.2) SECONDS Sodium 140 (137-145) mmol/L Potassium 5.1 (3.4-5.1) mmol/L Chloride 108 H (98-107) mmol/L Carbon Dioxide 23 (22-32) mmol/L BUN 47 H (9-20) mg/dL Creatinine 1.71 H (0.66-1.25) mg/dL Estimated GFR 39.2 L (>60) mL/min BUN/Creatinine Ratio 27.5 H (6-22) Glucose 106 (80-110) mg/dL Lactate (0.7-2.1) mmol/L Calcium 9.3 (8.4-10.2) mg/dL Phosphorus 3.7 (2.3-3.7) mg/dL Magnesium 2.5 H (1.6-2.3) mg/dL Total Bilirubin 0.8 (0.2-1.3) mg/dL AST 51 (17-59) IU/L ALT 30 (<50) IU/L Alkaline Phosphatase 126 (38-126) U/L Total Creatine Kinase 227 H (55-170) U/L CK-MB (CK-2) 3.16 H (<2.37) ng/mL CK-MB (CK-2) Rel Index 1.4 L (1.5-5.0) % Troponin I 0.016 (0.01-0.034) ng/mL NT-Pro-B Natriuret Pep 2910 H (<450) pg/mL Total Protein 7.5 (6.3-8.2) g/dL Albumin 4.7 (3.5-5.0) g/dL Globulin 2.8 (1.7-4.1) g/dL Albumin/Globulin Ratio 1.7 (1.0-2.8) Lipase 365 H (23-300) U/L Urine Color Urine Appearance Urine pH (4.5-8.0) Ur Specific [place] (1.000-1.035) Urine Protein (Negative) Urine Glucose (UA) (Negative) g/dL Urine Ketones (NEGATIVE) Urine Occult Blood (Negative) Urine Nitrate (Negative) Urine Bilirubin (NEGATIVE) Urine Urobilinogen (0.2) E.U./dL Ur Leukocyte Esterase (NEGATIVE) Urine RBC (0-5/HPF) Urine WBC (0-5/HPF) Ur Squamous Epith Cells (0-5/HPF) Urine Bacteria (None) Hyaline Casts (None) Ur Culture Indicated? Digoxin (0.8-2.0) ng/mL SARS-CoV-2 (PCR) (Negative) 12/14/20 12/14/20 12/14/20 Range/Units 14:30 14:45 14:45 WBC (4.5-11.0) X10^3/uL RBC (4.5-5.9) X10^6/uL Hgb (13.5-17.5) g/dL Hct (41-53) % MCV (80-100) fL MCH (26-34) PG MCHC (30-36) % RDW (11.6-14.8) % Plt Count (150-400) X10^3/uL Neut % (Auto) (50-75) % Lymph % (Auto) (25-40) % [place] % (Auto) (3-14) % Eos % (Auto) (2-4) % Baso % (Auto) (0-2) % Neut # (Auto) (8055-4764) /uL Lymph # (Auto) (3059-6336) /uL [place] # (Auto) (0-900) /uL Eos # (Auto) (0-450) /uL Baso # (Auto) (0-100) /uL PT 12.6 (10.1-12.7) SECONDS INR 1.1 (0.9-1.3) APTT 32 D (26.4-36.2) SECONDS Sodium (137-145) mmol/L Potassium (3.4-5.1) mmol/L Chloride (98-107) mmol/L Carbon Dioxide (22-32) mmol/L BUN (9-20) mg/dL Creatinine (0.66-1.25) mg/dL Estimated GFR (>60) mL/min BUN/Creatinine Ratio (6-22) Glucose (80-110) mg/dL Lactate (0.7-2.1) mmol/L Calcium (8.4-10.2) mg/dL Phosphorus (2.3-3.7) mg/dL Magnesium (1.6-2.3) mg/dL Total Bilirubin (0.2-1.3) mg/dL AST (17-59) IU/L ALT (<50) IU/L Alkaline Phosphatase (38-126) U/L Total Creatine Kinase (55-170) U/L CK-MB (CK-2) (<2.37) ng/mL CK-MB (CK-2) Rel Index (1.5-5.0) % Troponin I (0.01-0.034) ng/mL NT-Pro-B Natriuret Pep (<450) pg/mL Total Protein (6.3-8.2) g/dL Albumin (3.5-5.0) g/dL Globulin (1.7-4.1) g/dL Albumin/Globulin Ratio (1.0-2.8) Lipase (23-300) U/L Urine Color Urine Appearance Urine pH (4.5-8.0) Ur Specific [place] (1.000-1.035) Urine Protein (Negative) Urine Glucose (UA) (Negative) g/dL Urine Ketones (NEGATIVE) Urine Occult Blood (Negative) Urine Nitrate (Negative) Urine Bilirubin (NEGATIVE) Urine Urobilinogen (0.2) E.U./dL Ur Leukocyte Esterase (NEGATIVE) Urine RBC (0-5/HPF) Urine WBC (0-5/HPF) Ur Squamous Epith Cells (0-5/HPF) Urine Bacteria (None) Hyaline Casts (None) Ur Culture Indicated? Digoxin < 0.4 L (0.8-2.0) ng/mL SARS-CoV-2 (PCR) Negative (Negative) 12/14/20 12/14/20 Range/Units 14:50 15:00 WBC (4.5-11.0) X10^3/uL RBC (4.5-5.9) X10^6/uL Hgb (13.5-17.5) g/dL Hct (41-53) % MCV (80-100) fL MCH (26-34) PG MCHC (30-36) % RDW (11.6-14.8) % Plt Count (150-400) X10^3/uL Neut % (Auto) (50-75) % Lymph % (Auto) (25-40) % [place] % (Auto) (3-14) % Eos % (Auto) (2-4) % Baso % (Auto) (0-2) % Neut # (Auto) (4851-2586) /uL Lymph # (Auto) (5162-2031) /uL [place] # (Auto) (0-900) /uL Eos # (Auto) (0-450) /uL Baso # (Auto) (0-100) /uL PT (10.1-12.7) SECONDS INR (0.9-1.3) APTT (26.4-36.2) SECONDS Sodium (137-145) mmol/L Potassium (3.4-5.1) mmol/L Chloride (98-107) mmol/L Carbon Dioxide (22-32) mmol/L BUN (9-20) mg/dL Creatinine (0.66-1.25) mg/dL Estimated GFR (>60) mL/min BUN/Creatinine Ratio (6-22) Glucose (80-110) mg/dL Lactate 1.4 (0.7-2.1) mmol/L Calcium (8.4-10.2) mg/dL Phosphorus (2.3-3.7) mg/dL Magnesium (1.6-2.3) mg/dL Total Bilirubin (0.2-1.3) mg/dL AST (17-59) IU/L ALT (<50) IU/L Alkaline Phosphatase (38-126) U/L Total Creatine Kinase (55-170) U/L CK-MB (CK-2) (<2.37) ng/mL CK-MB (CK-2) Rel Index (1.5-5.0) % Troponin I (0.01-0.034) ng/mL NT-Pro-B Natriuret Pep (<450) pg/mL Total Protein (6.3-8.2) g/dL Albumin (3.5-5.0) g/dL Globulin (1.7-4.1) g/dL Albumin/Globulin Ratio (1.0-2.8) Lipase (23-300) U/L Urine Color Yellow Urine Appearance Clear Urine pH 5.5 (4.5-8.0) Ur Specific [place] 1.015 (1.000-1.035) Urine Protein 1+ H (Negative) Urine Glucose (UA) Negative (Negative) g/dL Urine Ketones Negative (NEGATIVE) Urine Occult Blood Negative (Negative) Urine Nitrate Negative (Negative) Urine Bilirubin Negative (NEGATIVE) Urine Urobilinogen 0.2 (0.2) E.U./dL Ur Leukocyte Esterase Negative (NEGATIVE) Urine RBC None seen (0-5/HPF) Urine WBC 1-5/hpf (0-5/HPF) Ur Squamous Epith Cells 0-1 /hpf (0-5/HPF) Urine Bacteria Many (>30) H (None) Hyaline Casts 5-10/lpf (None) Ur Culture Indicated? Cult not indicated Digoxin (0.8-2.0) ng/mL SARS-CoV-2 (PCR) (Negative) Imaging Data CT scan - head: Radiologist's Impresson: PROCEDURE:? CT HEAD/BRAIN WO CON ? INDICATIONS:? syncope ? TECHNIQUE:? Noncontrast 4.5 mm thick angled axial sections acquired from the foramen magnum to the vertex, with coronal and sagittal reformats.? For radiation dose reduction, the following was used:? automated exposure control, adjustment of mA and/or kV according to patient size.? ? COMPARISON:? None. ? FINDINGS:? Image quality:? Excellent.? ? CSF spaces:? Basal cisterns are patent.? No extra-axial fluid collections.? The ventricles are symmetric in size and shape.? ? Brain:? There is mild focal low density seen involving the left emily, as on series 2, image 13. ? No intracranial bleeds or masses.? There is cerebral volume loss for age, with resultant ventricular and sulcal prominence.? There are periventricular and deep white matter chronic small vessel ischemic changes.? There is intracranial internal carotid artery atherosclerosis.? ? Skull and face:? Calvarium and visualized facial bones appear intact, without suspicious lesions.? ? Sinuses:? Visualized sinuses and mastoids are clear.? ? ? IMPRESSION:? No acute intracranial hemorrhage is seen.? ? Focal low density can be seen involving the left emily.? Differential diagnosis includes artifact and subacute infarction. ? If it would be helpful for clinical management decision making, please consider a dedicated brain MRI for further evaluation (assuming that there is no contraindication).? Dictated by: Diony Tolentino M.D. on 12/14/2020 at 14:27 ? ? Approved by: Diony Tolentino M.D. on 12/14/2020 at 14:29 ? Chest x-ray: Radiologist's Impresson: PROCEDURE:? XR CHEST 1V ? INDICATIONS:? bradycardic ? TECHNIQUE:? One view of the chest was acquired.? ? COMPARISON:? [facility], XR CHEST 2V, 12/28/2017, 13:54. ? FINDINGS:? ? Surgical changes and devices:? None.? Defibrillator pads are seen. ? Lungs and pleura:? An incomplete inspiratory result is noted, causing a crowded appearance to the lung markings.? No focal infiltrates are seen.? No pneumothorax or significant pleural effusions are seen. ? Diffuse fatty liver infiltration is noted.? ? Mediastinum:? Mediastinal contours appear normal.? Heart size is mildly enlarged.? ? Bones and chest wall:? No suspicious bony lesions.? Age-appropriate bony degenerative changes are seen.? Overlying soft tissues appear unremarkable.? IMPRESSION:? Low lung volumes, with mild interstitial prominence, likely related to artifact or mild pulmonary edema. ? ? Dictated by: Diony Tolentino M.D. on 12/14/2020 at 14:18 ? ? CXR: Radiologist's Impresson: PROCEDURE:? XR CHEST 1V ? INDICATIONS:? S/P central line placement ? TECHNIQUE:? One view of the chest was acquired.? ? COMPARISON:? [facility], XR CHEST 1V, 12/14/2020, 14:44. ? FINDINGS:? ? Surgical changes and devices:? A right-sided central line is placed, with the tip overlying the superior aspect of the superior vena cava, 8-9 cm above the cavoatrial junction. ? Lungs and pleura:? An incomplete inspiratory result is noted, causing a crowded appearance to the lung markings.? No focal infiltrates are seen.? No pneumothorax or significant pleural effusions are seen. ? ? Mediastinum:? Mediastinal contours appear normal.? Heart size is moderately enlarged.? ? Bones and chest wall:? No suspicious bony lesions.? Age-appropriate bony degenerative changes are seen. ? Overlying soft tissues appear unremarkable.? Defibrillator pads are seen. ? ? IMPRESSION:? The tip of the right-sided central line overlies the superior aspect of the superior vena cava.? ? Moderate cardiomegaly.? ? Dictated by: Diony Tolentino M.D. on 12/14/2020 at 15:13 ? ? ECG Data Interpretation: Bradycardia, no P-waves no ST changes MDM Narrative Medical decision making narrative: Patient immediately brought in given atropine. He actually did respond to atropine heart rate improved into the 40s. He was given 1 mg of glucagon. Pharmacy was given medications which they identified from the pillbox. He is on a beta-emmanuel our records report that he is on digoxin and Coumadin which do not appear to be true. Despite bradycardia his actually maintaining blood pressure. Patient started having dystonic like reaction lip smacking eyes rolling but responsive. He is given Ativan which seemed to resolve all symptoms. I suspect that patient passed out secondary to bradycardia. Difficult to say if this is junctional rate rhythm versus slow AFib or secondary to any type of beta-emmanuel overdose. He was given a small bit of glucagon it did help. Heart rate remains at 30-40. Dopamine seems to be improving all symptoms. 1511: Dr. Bui, cardiology at [facility], agrees with transfer and agrees with dopamine drip unfortunately no beds available Multiple other facilities have been called including [facility] Macarena haas and many others awaiting phone calls by 1528: [facility] Cardiology has been updated patient's symptoms test results agrees with transfer [address] Jamil in a fan patient's symptoms test results and is happy to accept patient Patient is doing significantly better on dopamine drip. He remains awake and alert. Head CT is negative. Critical Care Time Critical Care Time Critical Care Time: Yes Total Critical Care Time: 120 Attestation: The high probability of a clinically significant, sudden or life threatening deterioration of the [cardiovascular] system(s) required my full and direct attention, intervention and personal management. The aggregate critical care time was 120 minutes. This time is in addition to time spent performing rep orted procedures but includes the following: [x] Data Review and interpretation [x] Patient assessment and monitoring of vital signs [x] Documentation [x] Medication orders and management Discharge Plan Departure Patient Disposition: [facility] Clinical Impression: Bradycardia, Syncope Prescriptions: No Action torsemide 20 mg tablet 20 mg PO SEEINSTR RF: 0 tramadol-acetaminophen 37.5-325 mg tablet 1 tab PO Q4-6H PRN (Reason: pain from root canal) RF: 0 metoprolol succinate 100 mg tablet extended release 24 hr 150 mg PO DAILY RF: 0 spironolactone 25 mg tablet 12.5 mg PO DAILY RF: 0 mycophenolate mofetil 500 mg tablet 2 tab PO BID RF: 0 tamsulosin 0.4 mg capsule 1 cap PO BEDTIME RF: 0 furosemide 80 mg tablet 1 tab PO SEEINSTR RF: 0 pyridostigmine bromide 60 mg tablet 1 tab PO TID RF: 0 warfarin 5 mg tablet 1 tab PO DAILY RF: 0 benazepril 20 mg tablet 10 mg PO DAILY RF: 0 allopurinol 300 mg tablet 300 mg PO DAILY RF: 0 digoxin 125 mcg tablet 1 tab PO DAILY RF: 0 testosterone cypionate [Depo-Testosterone] 200 mg/mL oil 1 ml IM Q2W RF: 0 armodafinil [Nuvigil] 150 mg Tablet 75 mg PO QAM RF: 0 Inv 3, 4-Diaminophyridine Base 10 MG tablet 1 tab PO QID RF: 0 albuterol sulfate 90 mcg/actuation HFA aerosol inhaler 1 puff INHALATION Q4-6H PRN (Reason: shortness of breath or wheezing) Qty: 8.5 RF: 0 Referrals: Miscellaneous,Doctor, MD [Primary Care Provider] -
[2020-12-14 15:05] LABS: PTT Partial Thromboplastin Tim 32 SECONDS (26.4-36.2)
[2020-12-14 15:06] LABS: CKMB % Relative Index 1.4 % (1.5-5.0); Creatine Kinase MB 3.16 ng/mL (<2.37)
[2020-12-14 15:07] LABS: HEMOLYSIS 78 (0-50)
[2020-12-14 15:15] LABS: COVID19 -Nasal RAPID Negative (Negative)
[2020-12-14 15:17] LABS: Appearance Urine UA CLEAR; Bilirubin Urine UA NEGATIVE (NEGATIVE); Color Urine UA YELLOW; Glucose Urine UA NEGATIVE (Negative); Ketones Urine UA NEGATIVE (NEGATIVE); Leukocyte Esterase Urine UA NEGATIVE (NEGATIVE); Nitrite Urine UA NEGATIVE (Negative); Occult Blood Urine UA NEGATIVE (Negative); Protein Urine UA 1+ (Negative); Specific Gravity Urine UA 1.015 (1.000-1.035); Urobilinogen Urine UA 0.2 E.U./dL (0.2); pH Urine UA 5.5 (4.5-8.0)
[2020-12-14 15:18] LABS: Lactate (Lactic Acid) 1.4 mmol/L (0.7-2.1)
[2020-12-14 15:18] LABS: RBC Urine None Seen (0-5/HPF)
[2020-12-14 15:27] LABS: Digoxin < 0.4 ng/mL (0.8-2.0)
[2020-12-14 15:30] LABS: Bacteria Urine Many (>30); Culture Indicated Urine Cult Not Indicated; Hyaline Casts Urine 5-10/LPF; Squamous Epithelial Cell Urine 0-1 /HPF (0-5/HPF); WBC Urine 1-5/HPF (0-5/HPF)
[2020-12-14] MEDS: LORazepam 2 MG/ML INJ (15:30)
[2020-12-14] MEDS: DOPAMINE HCL IN DEXTROSE 5 % 400 MG/250 ML PLAST..BAG 23.156 MG IV (15:34)
--- NOTE | 2020-12-14 16:00 | DI.RAD.S_ITS ---
PROCEDURE: XR CHEST 1V INDICATIONS: S/P central line placement TECHNIQUE: One view of the chest was acquired. COMPARISON: [facility], , XR CHEST 1V, 12/14/2020, 14:44. FINDINGS: Surgical changes and devices: A right-sided central line is placed, with the tip overlying the superior aspect of the superior vena cava, 8-9 cm above the cavoatrial junction. Lungs and pleura: An incomplete inspiratory result is noted, causing a crowded appearance to the lung markings. No focal infiltrates are seen. No pneumothorax or significant pleural effusions are seen. Mediastinum: Mediastinal contours appear normal. Heart size is moderately enlarged. Bones and chest wall: No suspicious bony lesions. Age-appropriate bony degenerative changes are seen. Overlying soft tissues appear unremarkable. Defibrillator pads are seen. IMPRESSION: The tip of the right-sided central line overlies the superior aspect of the superior vena cava. Moderate cardiomegaly. Dictated by: Diony Tolentino M.D. on 12/14/2020 at 15:13 Approved by: Diony Tolentino M.D. on 12/14/2020 at 15:15
--- NOTE | 2020-12-14 16:10 | PC.NURSE ---
Central line placed and xray completed. Dopamine initiated per protocol.
--- NOTE | 2020-12-14 16:19 | PC.NURSE ---
during central line placement run of V-tach at 1550. Dopamine placed on hold for 1 min resumed at 5mcg/min. MD Guzman aware and in room for event.
--- NOTE | 2020-12-14 16:43 | PC.NURSE ---
pt with dystonic type reaction aproxx 1553. leg twitching, eyes rolling and head movement in circles. pt awake the entire episode and able to answer questions but unable to control motions. Ativan 1mg administered with episode resolved
[2020-12-14] MEDS: FUROSEMIDE 40 MG/4 ML VIAL IV (17:25)
== END 2020-12-14 17:49 | disposition short-term general hospital (02) ==
PROVIDERS: Emergency Provider Emergency Medicine
DX: R00.1 Bradycardia, unspecified (principal); R55 Syncope and collapse; Z20.822 Contact with and (suspected) exposure to COVID-19; Z79.01 Long term (current) use of anticoagulants
CPT/HCPCS: 36415; 36573; 70450; 71045; 80053; 80162; 81001; 82550; 82553; 83605; 83690; 83735; 83880; 84100; 84484; 85025; 85610; 85730; 87635; 93005; 96365; 96366; 96375; 99285; 99291; 99292; C9803; J0461; J1610; J1940; J2060

== ENCOUNTER → 2022-03-10 15:56 | Outpatient (CLI) | payer MEDICARE, BC, SELFPAY ==
[2022-03-10 17:04] LABS: Influenza A - CEPHEID Flu A POSITIVE (NEGATIVE); Influenza B - CEPHEID Flu B NEGATIVE (NEGATIVE); Respiratory Syncytial Virus Negative (Negative)
[2022-03-10 17:07] LABS: COVID-19 CEPHEID 4-PLEX PCR Negative (Negative)
== END ==
PROVIDERS: Visit Provider Registered Nurse
DX: R05.9 Cough, unspecified (principal)
CPT/HCPCS: 0241U

== ENCOUNTER 2022-03-10 16:50 | Inpatient (IN) | payer MEDICARE, OTHER, SELFPAY ==
[2022-03-10] VITALS (42 sets, daily range): BP systolic 77–110; BP diastolic 49–69; PULSE 60–135; RESP 18–33; TEMP 36.4–37.2; O2SAT 93–99; BMI 38.7; BMI 38.4
--- NOTE | 2022-03-10 17:05 | DI.RAD.S_ITS ---
PROCEDURE: XR CHEST 1V INDICATIONS: Shortness of breath TECHNIQUE: One view of the chest was acquired. COMPARISON: [facility], CR, XR CHEST 1V, 12/14/2020, 14:44. [facility], CR, XR CHEST 1V, 12/14/2020, 15:58. FINDINGS: Surgical changes and devices: Dual lead left chest wall cardiac pacing device in appropriate position, placed in the interval since prior study. Lungs and pleura: Lungs are clear. No pleural effusions or pneumothorax. Mediastinum: Mediastinal contours appear normal. Heart size is normal. Bones and chest wall: No suspicious bony lesions. Overlying soft tissues appear unremarkable. IMPRESSION: Normal expected appearance of left chest wall 2 lead cardiac pacing device with no acute postprocedural complication demonstrated. Dictated by: Bhargav Ko M.D. on 03/10/2022 at 17:21 Approved by: Bhargav Ko M.D. on 03/10/2022 at 17:22
[2022-03-10 17:45] LABS: Add Manual Diff / Slide Review NO; Basophils Absolute Auto 0 /uL (0-100); Basophils Percent Auto 0.5 % (0-2); Eosinophils Absolute Auto 0 /uL (0-450); Eosinophils Percent Auto 1.4 % (2-4); Hematocrit 39.1 % (41-53); Hemoglobin 13.1 g/dL (13.5-17.5); Lymphocytes Absolute Auto 800 /uL (1100-4500); Lymphocytes Percent Auto 24.4 % (25-40); Mean Corpuscular HGB Conc 33.4 % (30-36); Mean Corpuscular Hemoglobin 30.1 PG (26-34); Mean Corpuscular Volume 89.9 fL (80-100); Monocytes Absolute Auto 500 /uL (0-900); Monocytes Percent Auto 16.1 % (3-14); Neutrophils Absolute Auto 1900 /uL (1500-7000); Neutrophils Percent Auto 57.6 % (50-75); Platelet Count 139 X10^3/uL (150-400); Red Blood Cell Count 4.35 X10^6/uL (4.5-5.9); Red Cell Distribution Width 14.3 % (11.6-14.8); White Blood Cell Count 3.4 X10^3/uL (4.5-11.0)
[2022-03-10 17:47] LABS: INR 1.9 (0.9-1.3); Prothrombin Time 22.4 SECONDS (10.1-12.7)
[2022-03-10 17:52] LABS: Alanine Aminotransferase 44 IU/L (<50); Albumin 4.4 g/dL (3.5-5.0); Albumin Globulin Ratio 1.4 (1.0-2.8); Alkaline Phosphatase 101 U/L (38-126); Aspartate Aminotransferase 80 IU/L (17-59); BUN Creatinine Ratio 30.5 (6-22); Blood Urea Nitrogen 40 mg/dL (9-20); Calcium 8.6 mg/dL (8.4-10.2); Carbon Dioxide 24 mmol/L (22-32); Chloride 103 mmol/L (98-107); Estimated Glomerular Filt Rate 56 mL/min (>60); Globulin 3.2 g/dL (1.7-4.1); Glucose 88 mg/dL (80-110); HEMOLYSIS < 15 (0-50); Potassium 4.3 mmol/L (3.4-5.1); Sodium 139 mmol/L (137-145); Total Protein 7.6 g/dL (6.3-8.2)
[2022-03-10 17:53] LABS: Lactate (Lactic Acid) 1.8 mmol/L (0.7-2.1)
[2022-03-10 18:03] LABS: NT-proBNP (BNP-Adult 18+) 2660 pg/mL (<450); Troponin I 0.023 ng/mL (0.01-0.034)
[2022-03-10] MEDS: DEXAMETHASONE 10 MG/ML VIAL PO (18:15)
[2022-03-10] MEDS: guaiFENesin ER 600 MG TAB PO (18:16)
--- NOTE | 2022-03-10 18:31 | ED.GENADULT ---
HPI - General Adult General Chief complaint: Shortness of Breath/Dyspnea Stated complaint: Congestion, SOB, Sent from [facility] Time Seen by Provider: 03/10/22 17:49 Source: patient Mode of arrival: Ambulatory History of Present Illness HPI narrative: 76-year-old gentleman who lives independently with most of his care through the [place], with a history of atrial fibrillation pacemaker placed approximately a year ago currently anticoagulated on Coumadin, congestive heart failure, Lambert-Eaton syndrome, hypertension presents with 10-12 days of upper respiratory infection complaints, congestion, nasal discharge, cough not complaining specifically of fevers but progressive weakness to the point where he states he is ?weak as a kitten?. He actually had trouble seeking care because he was not strong enough to actually get to care and did not consider calling 911. Is more short of breath lying flat but does not complain of worsening lower extremity edema. He also notes that he has been lying down for the better part of 2 weeks and his edema is always better in that situation. He has been a little bit nauseated but is not vomiting, no specific abdominal pain, constipation or diarrhea. Low-grade headaches have completely resolved but nasal discharge continues. He complains of mild scratchy throat. He has not noted rapid heart rate or palpitations. Related Data Home Medications Medication Instructions Recorded Confirmed Inv 3, 4-Diaminophyridine Base 1 tab PO QID 12/28/17 08/04/21 allopurinol 300 mg tablet 300 mg PO DAILY 12/28/17 08/04/21 armodafinil 150 mg tablet (Nuvigil) 75 mg PO QAM 12/28/17 08/04/21 benazepril 20 mg tablet 10 mg PO DAILY 12/28/17 08/04/21 furosemide 80 mg tablet 1 tab PO SEEINSTR 12/28/17 08/04/21 metoprolol succinate 100 mg 150 mg PO DAILY 12/28/17 08/04/21 tablet,extended release 24 hr mycophenolate mofetil 500 mg tablet 2 tab PO BID 12/28/17 08/04/21 pyridostigmine bromide 60 mg tablet 1 tab PO TID 12/28/17 08/04/21 spironolactone 25 mg tablet 12.5 mg PO DAILY 12/28/17 08/04/21 torsemide 20 mg tablet 20 mg PO SEEINSTR 12/28/17 08/04/21 warfarin 5 mg tablet 1 tab PO DAILY 12/28/17 08/04/21 amifampridine phosphate 10 mg 10 mg PO 5XD 03/10/22 03/10/22 tablet (Firdapse) Previous Rx's Medication Instructions Recorded albuterol sulfate 90 mcg/actuation 1 puff inhalation Q4-6H PRN 12/28/17 aerosol inhaler shortness of breath or wheezing #8.5 grams mupirocin 2 % topical ointment 1 applic topical TID #15 grams 08/04/21 Allergies Allergy/AdvReac Type Severity Reaction Status Date / Time testosterone Allergy Unknown Verified 03/10/22 15:37 Review of Systems Review of Systems Narrative: Remainder of complete review of systems is otherwise unremarkable except for that included in the HPI. Patient History Medical History Chronic atrial fibrillation Congestive heart failure Hypertension LEMS (Lambert-Eaton myasthenic syndrome) Surgical History History of permanent cardiac pacemaker placement Social History household members: none Smoking Status: Never smoker alcohol intake: current Smoking Status: Never smoker alcohol intake frequency: holidays/special occasions only Substance Use Type: does not use Exam Initial Vital Signs Initial Vital Signs: Vital Signs Temperature 98.9 F 03/10/22 16:53 Pulse Rate 88 03/10/22 16:53 Respiratory Rate 18 03/10/22 16:53 Pulse Oximetry 95 03/10/22 16:53 Oxygen Delivery Method 03/10/22 16:53 General: Chronically ill, fatigued appearing but Able to give a complete and coherent history. Well-nourished well-developed HEENT: Dry mucous membranes, normal sclera with reactive pupils, Neck: Positive JVD, supple Respiratory: Lungs with no significant wheeze and minimal basilar crackles. Full and symmetrical air movement Cardiac: Irregular rapid with no murmurs no bruits Abdomen: Soft, obese, nontender, good bowel tones, no flank pain Skin: Warm and dry, no rashes aside from chronic venous stasis changes. Adequate peripheral perfusion with good capillary refill. Neurologic: Globally weak but Grossly neurologically intact with no obvious asymmetries or abnormalities Extremities: No trauma, well perfused, 1+ bilateral lower extremity edema Psych: Cooperative, appropriate insight and affect Course Orders Ordered: Acetaminophen (Acetaminophen 325 Mg Tablet) 650 mg PO Q6H PRN PRN Reason: Fever/Mild Pain (1-3) Digoxin (Digoxin 500 Mcg/2 Ml Ampul) 250 mcg IV Q6H [facility] Stop: 03/11/22 06:16 Last Admin: 03/11/22 00:20 Dose: 250 mcg Documented By: JORGE Sodium Chloride (Normal Saline 0.45%) 1,000 mls @ 100 mls/hr IV CONT PIPPA Last Admin: 03/10/22 23:05 Dose: 100 mls/hr Documented By: JORGE Metoprolol Succinate (Metoprolol Er 50 Mg Tablet) 50 mg PO DAILY [facility] Naloxone HCl (Naloxone 0.4 Mg/Ml Vial) 0.2 mg IV Q2MIN PRN PRN Reason: Opiate Reversal Ondansetron HCl (Ondansetron 4 Mg/2 Ml Inj) 4 mg IV Q8HR PRN PRN Reason: Nausea And Vomiting Oxycodone HCl (Oxycodone Ir 5 Mg Tablet) 5 mg PO Q3H PRN PRN Reason: Pain, Moderate (4-6) Warfarin Sodium (Warfarin 5 Mg Tablet) 5 mg PO 1700 [facility] Discontinued Medications Dexamethasone (Dexamethasone 10 Mg/Ml Vial) 10 mg PO NOW ONE Stop: 03/10/22 17:51 Last Admin: 03/10/22 18:15 Dose: 10 mg Documented By: TERELL Digoxin (Digoxin 500 Mcg/2 Ml Ampul) 250 mcg IV NOW ONE Stop: 03/10/22 19:09 Last Admin: 03/10/22 19:23 Dose: 250 mcg Documented By: TERELL Digoxin (Digoxin 500 Mcg/2 Ml Ampul) 500 mcg IV NOW ONE Stop: 03/11/22 00:00 Guaifenesin (Guaifenesin Er 600 Mg Tab) 600 mg PO NOW ONE Stop: 03/10/22 17:51 Last Admin: 03/10/22 18:16 Dose: 600 mg Documented By: TERELL Sodium Chloride (Normal Saline 0.9%) 500 mls @ 500 mls/hr IV BOLUS ONE Stop: 03/10/22 20:07 Last Infusion: 03/10/22 20:47 Dose: 0 mls/hr Documented By: Admin: 03/10/22 19:23 Dose: 500 mls/hr Documented By: TERELL Sodium Chloride (Normal Saline 0.9%) 500 mls @ 500 mls/hr IV BOLUS ONE Stop: 03/10/22 21:54 Last Infusion: 03/10/22 22:15 Dose: 0 mls/hr Documented By: Admin: 03/10/22 21:05 Dose: 500 mls/hr Documented By: TERELL Vital Signs Vital signs: Vital Signs - 8 hr 03/10/22 19:35 03/10/22 19:35 03/10/22 19:40 Pulse Rate 124 H 123 H Respiratory Rate 25 H 26 H Blood Pressure 88/57 L Pulse Oximetry 96 96 Oxygen Delivery Method 03/10/22 19:40 03/10/22 19:46 03/10/22 19:46 Pulse Rate 122 H Respiratory Rate 28 H Blood Pressure 93/53 L 108/56 L Pulse Oximetry 97 Oxygen Delivery Method 03/10/22 19:50 03/10/22 19:50 03/10/22 20:00 Pulse Rate 120 H Respiratory Rate 28 H Blood Pressure 90/55 L 84/57 L Pulse Oximetry 95 Oxygen Delivery Method 03/10/22 20:00 03/10/22 20:10 03/10/22 20:10 Pulse Rate 123 H 119 H Respiratory Rate 29 H 26 H Blood Pressure 98/61 Pulse Oximetry 95 95 Oxygen Delivery Method 03/10/22 20:20 03/10/22 20:20 03/10/22 20:30 Pulse Rate 121 H Respiratory Rate 26 H Blood Pressure 103/69 94/55 L Pulse Oximetry 97 Oxygen Delivery Method Room Air 03/10/22 20:30 03/10/22 20:40 03/10/22 20:40 Pulse Rate 122 H 113 H Respiratory Rate 24 22 Blood Pressure 86/59 L Pulse Oximetry 98 97 Oxygen Delivery Method 03/10/22 20:51 03/10/22 20:51 Pulse Rate 116 H Respiratory Rate 28 H Blood Pressure 110/54 L Pulse Oximetry 94 Oxygen Delivery Method Room Air Medical Decision Making Lab Data Result diagrams: 03/10/22 17:15 03/10/22 17:15 Labs: Lab Results 03/10/22 03/10/22 03/10/22 Range/Units 17:15 17:15 17:15 WBC 3.4 L (4.5-11.0) X10^3/uL RBC 4.35 L (4.5-5.9) X10^6/uL Hgb 13.1 L (13.5-17.5) g/dL Hct 39.1 L (41-53) % MCV 89.9 (80-100) fL MCH 30.1 (26-34) PG MCHC 33.4 (30-36) % RDW 14.3 (11.6-14.8) % Plt Count 139 L (150-400) X10^3/uL Neut % (Auto) 57.6 (50-75) % Lymph % (Auto) 24.4 L (25-40) % [place] % (Auto) 16.1 H (3-14) % Eos % (Auto) 1.4 L (2-4) % Baso % (Auto) 0.5 (0-2) % Neut # (Auto) 1900 (9470-8343) /uL Lymph # (Auto) 800 L (7806-4734) /uL [place] # (Auto) 500 (0-900) /uL Eos # (Auto) 0 (0-450) /uL Baso # (Auto) 0 (0-100) /uL PT 22.4 H (10.1-12.7) SECONDS INR 1.9 H (0.9-1.3) Sodium 139 (137-145) mmol/L Potassium 4.3 (3.4-5.1) mmol/L Chloride 103 (98-107) mmol/L Carbon Dioxide 24 (22-32) mmol/L BUN 40 H (9-20) mg/dL Creatinine 1.31 H (0.66-1.25) mg/dL Estimated GFR 56 L (>60) mL/min BUN/Creatinine Ratio 30.5 H (6-22) Glucose 88 (80-110) mg/dL Lactate (0.7-2.1) mmol/L Calcium 8.6 (8.4-10.2) mg/dL Total Bilirubin 1.0 (0.2-1.3) mg/dL AST 80 H (17-59) IU/L ALT 44 (<50) IU/L Alkaline Phosphatase 101 (38-126) U/L Troponin I 0.023 (0.01-0.034) ng/mL NT-Pro-B Natriuret Pep 2660 H (<450) pg/mL Total Protein 7.6 (6.3-8.2) g/dL Albumin 4.4 (3.5-5.0) g/dL Globulin 3.2 (1.7-4.1) g/dL Albumin/Globulin Ratio 1.4 (1.0-2.8) 03/10/22 Range/Units 17:15 WBC (4.5-11.0) X10^3/uL RBC (4.5-5.9) X10^6/uL Hgb (13.5-17.5) g/dL Hct (41-53) % MCV (80-100) fL MCH (26-34) PG MCHC (30-36) % RDW (11.6-14.8) % Plt Count (150-400) X10^3/uL Neut % (Auto) (50-75) % Lymph % (Auto) (25-40) % [place] % (Auto) (3-14) % Eos % (Auto) (2-4) % Baso % (Auto) (0-2) % Neut # (Auto) (5536-1846) /uL Lymph # (Auto) (4334-6290) /uL [place] # (Auto) (0-900) /uL Eos # (Auto) (0-450) /uL Baso # (Auto) (0-100) /uL PT (10.1-12.7) SECONDS INR (0.9-1.3) Sodium (137-145) mmol/L Potassium (3.4-5.1) mmol/L Chloride (98-107) mmol/L Carbon Dioxide (22-32) mmol/L BUN (9-20) mg/dL Creatinine (0.66-1.25) mg/dL Estimated GFR (>60) mL/min BUN/Creatinine Ratio (6-22) Glucose (80-110) mg/dL Lactate 1.8 (0.7-2.1) mmol/L Calcium (8.4-10.2) mg/dL Total Bilirubin (0.2-1.3) mg/dL AST (17-59) IU/L ALT (<50) IU/L Alkaline Phosphatase (38-126) U/L Troponin I (0.01-0.034) ng/mL NT-Pro-B Natriuret Pep (<450) pg/mL Total Protein (6.3-8.2) g/dL Albumin (3.5-5.0) g/dL Globulin (1.7-4.1) g/dL Albumin/Globulin Ratio (1.0-2.8) MDM Narrative Medical decision making narrative: 76-year-old gentleman with chronic atrial fibrillation. He is currently between 100 and 140 and has no sensation that his heart is beating rapidly and no discomfort from this. Testing positive for influenza A. His infectious disease symptoms have been present for 10-12 days and he is past the window for antiviral medication. I suspect that the atrial fibrillation has been poorly rate controlled due to his influenza infection and he now is having an acute exacerbation of his chronic congestive heart failure as well. In the emergency department he is tachycardic, hypotensive with likely vascular volume depletion but increasing pulmonary edema. Will give 250 mg of IV digoxin and 500 cc fluid bolus. Will continue to evaluate. With minimal movement, sitting up in bed participating in physical exam, his oxygen saturations on room air dropped to the low 80s. Resting with deep breathing, he is back up into the upper 90s. At this time, there is no evidence of acute coronary syndrome, impending respiratory failure, bacterial infection or sepsis. Patient will need hospital admission Care is reviewed with Dr. Cade, agreed with reasoned fluid resuscitation, if pressures continue to be a problem recommended phenylephrine and if rate continues to be an issue recommended amiodarone drip without bolus. Care is reviewed with hospitalist and patient is accepted for ICU admission Findings concerning plan reviewed with patient questions are answered. Critical Care Time Critical Care Time Critical Care Time: Yes Total Critical Care Time: 37 Attestation: Critical care time is separate from other billable procedures. There is a high probability of a significant, sudden or life-threatening deterioration that requires my full and direct attention, intervention and personal management. This critical care time includes consultation with family and other consulting doctors, review of records, and interpretation of data from labs, EKGs and imaging as well as managements of atrial fibrillation with rapid ventricular response, acute congestive heart failure and influenza. Discharge Plan Departure Patient Disposition: Admitted As Inpatient Clinical Impression: Atrial fibrillation with RVR, Influenza A Congestive heart failure Qualifiers: Heart failure type: unspecified Heart failure chronicity: acute on chronic Qualified Code(s): I50.9 - Heart failure, unspecified Admit Date/Time: 03/10/22 20:59 Admit Provider: Dominik Kunz
[2022-03-10] MEDS: DIGOXIN 500 MCG/2 ML AMPUL 250 MCG IV (19:23)
[2022-03-10] MEDS: SODIUM CHLORIDE 0.9% 500 ML IV ×2 (19:23→21:05)
--- NOTE | 2022-03-10 19:42 | PC.NURSE ---
19:[address] Marte of pt's BP being 87/50. awaiting orders
[2022-03-10] MEDS: SODIUM CHLORIDE 0.45% 1,000 ML 100 ML IV (23:05)
--- NOTE | 2022-03-10 23:06 | P.HP_ITS ---
History of Present Illness History of Present Illness Date Patient Seen: 03/10/22 Chief complaint: Congestion, SOB, Sent from [facility] Narrative: 76-year-old gentleman who lives independently [facility], with a history of atrial fibrillation pacemaker placed approximately a year ago currently anticoagulated on Coumadin, congestive heart failure, Lambert- Eaton syndrome, hypertension presents with 10-12 days of upper respiratory infection complaints, congestion, nasal discharge, cough not complaining specifically of fevers but progressive weakness to the point where he states he is ?weak as a kitten?.? He actually had trouble seeking care because he was not strong enough to actually get to care and did not consider calling 911.? Is more short of breath lying flat but does not complain of worsening lower extremity edema.? He also notes that he has been lying down for the better part of 2 weeks and his edema is always better in that situation.? He has been a little bit nauseated but is not vomiting, no specific abdominal pain, constipation or diarrhea.? Low-grade headaches have completely resolved but nasal discharge continues.? He complains of mild scratchy throat.? He has not noted rapid heart rate or palpitations. Patient in the ER was given 500 cc IV fluid for hypotension, also IV digoxin, when I saw the patient he was already feeling better at that time but continues to have hypotension with tachycardic episodes of 120-130. He says that his breathing is significantly improved and feeling much better. He confirms poor oral intake, fevers, not feeling well for past 1 week. Discussed with the ER physician for a possible Tamiflu but given his illness more than a week, do not see any reason to treat him at this time. Denies any urinary symptoms, denies any abdominal pain and denies any chest pain. Patient History Medical History Chronic atrial fibrillation Congestive heart failure Hypertension LEMS (Lambert-Eaton myasthenic syndrome) Surgical History History of permanent cardiac pacemaker placement Family & Social History Social History: household members none Prior Living Arrangements House Safety & Behavioral: Feels Safe in Current Yes Environment Been Physically Hurt or No Threatened By a Person Tobacco & Substance use: Smoking Status Never smoker alcohol intake current alcohol intake frequency holiday/special occasion Substance Use Type does not use Comment: Patient lives by himself. Trish is his daughter and primary call or contact centre manager. Meds Home Medications and Allergies Home Medications Medication Instructions Recorded Confirmed Type Inv 3, 4-Diaminophyridine Base 1 tab PO QID 12/28/17 08/04/21 History albuterol sulfate 90 mcg/actuation 1 puff inhalation Q4-6H PRN 12/28/17 08/04/21 Rx aerosol inhaler shortness of breath or wheezing #8.5 grams allopurinol 300 mg tablet 300 mg PO DAILY 12/28/17 08/04/21 History armodafinil 150 mg tablet (Nuvigil) 75 mg PO QAM 12/28/17 08/04/21 History benazepril 20 mg tablet 10 mg PO DAILY 12/28/17 08/04/21 History furosemide 80 mg tablet 1 tab PO SEEINSTR 12/28/17 08/04/21 History metoprolol succinate 100 mg 150 mg PO DAILY 12/28/17 08/04/21 History tablet,extended release 24 hr mycophenolate mofetil 500 mg tablet 2 tab PO BID 12/28/17 08/04/21 History pyridostigmine bromide 60 mg tablet 1 tab PO TID 12/28/17 08/04/21 History spironolactone 25 mg tablet 12.5 mg PO DAILY 12/28/17 08/04/21 History torsemide 20 mg tablet 20 mg PO SEEINSTR 12/28/17 08/04/21 History warfarin 5 mg tablet 1 tab PO DAILY 12/28/17 08/04/21 History mupirocin 2 % topical ointment 1 applic topical TID #15 grams 08/04/21 08/04/21 Rx amifampridine phosphate 10 mg 10 mg PO 5XD 03/10/22 03/10/22 History tablet (Firdapse) Allergies Allergy/AdvReac Type Severity Reaction Status Date / Time testosterone Allergy Unknown Verified 03/10/22 15:37 Review of Systems Review of Systems Narrative: All other systems reviewed, negative other than as mentioned above. Exam Vital Signs (past 8 hours): - 03/10/22 16:53 03/10/22 18:15 03/10/22 18:16 Temperature 98.9 F Pulse Rate 88 132 H 135 H Respiratory Rate 18 21 24 Blood Pressure Pulse Oximetry 95 95 93 Oxygen Delivery Method Room Air Room Air Room Air Oxygen Flow Rate 03/10/22 18:16 03/10/22 18:30 03/10/22 18:30 Temperature Pulse Rate 127 H Respiratory Rate 22 Blood Pressure 91/61 96/55 L Pulse Oximetry 99 Oxygen Delivery Method Room Air Oxygen Flow Rate 03/10/22 19:23 03/10/22 19:00 03/10/22 19:01 Temperature Pulse Rate 124 H 125 H 120 H Respiratory Rate 22 26 H Blood Pressure Pulse Oximetry 96 98 Oxygen Delivery Method Nasal Cannula Nasal Cannula Oxygen Flow Rate 2 2 03/10/22 19:01 03/10/22 19:04 03/10/22 19:04 Temperature Pulse Rate 108 H Respiratory Rate 18 Blood Pressure 87/50 L 89/56 L Pulse Oximetry 96 Oxygen Delivery Method Nasal Cannula Oxygen Flow Rate 2 03/10/22 19:06 03/10/22 19:06 03/10/22 19:10 Temperature Pulse Rate 123 H 123 H Respiratory Rate 23 28 H Blood Pressure 88/50 L Pulse Oximetry 95 94 Oxygen Delivery Method Nasal Cannula Nasal Cannula Oxygen Flow Rate 2 2 03/10/22 19:10 03/10/22 19:15 03/10/22 19:15 Temperature Pulse Rate 122 H Respiratory Rate 22 Blood Pressure 82/52 L 82/56 L Pulse Oximetry 93 Oxygen Delivery Method Nasal Cannula Oxygen Flow Rate 2 03/10/22 19:20 03/10/22 19:20 03/10/22 19:25 Temperature Pulse Rate 122 H 121 H Respiratory Rate 25 H 27 H Blood Pressure 91/59 L Pulse Oximetry 96 95 Oxygen Delivery Method Nasal Cannula Oxygen Flow Rate 2 03/10/22 19:25 03/10/22 19:30 03/10/22 19:30 Temperature Pulse Rate 121 H Respiratory Rate 19 Blood Pressure 77/54 L 86/58 L Pulse Oximetry 99 Oxygen Delivery Method Oxygen Flow Rate 03/10/22 19:35 03/10/22 19:35 03/10/22 19:40 Temperature Pulse Rate 124 H 123 H Respiratory Rate 25 H 26 H Blood Pressure 88/57 L Pulse Oximetry 96 96 Oxygen Delivery Method Oxygen Flow Rate 03/10/22 19:40 03/10/22 19:46 03/10/22 19:46 Temperature Pulse Rate 122 H Respiratory Rate 28 H Blood Pressure 93/53 L 108/56 L Pulse Oximetry 97 Oxygen Delivery Method Oxygen Flow Rate 03/10/22 19:50 03/10/22 19:50 03/10/22 20:00 Temperature Pulse Rate 120 H Respiratory Rate 28 H Blood Pressure 90/55 L 84/57 L Pulse Oximetry 95 Oxygen Delivery Method Oxygen Flow Rate 03/10/22 20:00 03/10/22 20:10 03/10/22 20:10 Temperature Pulse Rate 123 H 119 H Respiratory Rate 29 H 26 H Blood Pressure 98/61 Pulse Oximetry 95 95 Oxygen Delivery Method Oxygen Flow Rate 03/10/22 20:20 03/10/22 20:20 03/10/22 20:30 Temperature Pulse Rate 121 H Respiratory Rate 26 H Blood Pressure 103/69 94/55 L Pulse Oximetry 97 Oxygen Delivery Method Room Air Oxygen Flow Rate 03/10/22 20:30 03/10/22 20:40 03/10/22 20:40 Temperature Pulse Rate 122 H 113 H Respiratory Rate 24 22 Blood Pressure 86/59 L Pulse Oximetry 98 97 Oxygen Delivery Method Oxygen Flow Rate 03/10/22 20:51 03/10/22 20:51 03/10/22 21:00 Temperature Pulse Rate 116 H Respiratory Rate 28 H Blood Pressure 110/54 L 92/53 L Pulse Oximetry 94 Oxygen Delivery Method Room Air Oxygen Flow Rate 03/10/22 21:00 03/10/22 21:20 03/10/22 21:20 Temperature Pulse Rate 101 H 118 H Respiratory Rate 28 H 33 H Blood Pressure 100/66 Pulse Oximetry 95 94 Oxygen Delivery Method Room Air Room Air Oxygen Flow Rate 03/10/22 21:30 03/10/22 21:30 03/10/22 21:40 Temperature Pulse Rate 115 H 101 H Respiratory Rate 23 25 H Blood Pressure 96/60 Pulse Oximetry 97 94 Oxygen Delivery Method Oxygen Flow Rate 03/10/22 21:43 03/10/22 21:43 03/10/22 21:50 Temperature Pulse Rate 103 H 112 H Respiratory Rate 24 27 H Blood Pressure 99/55 L Pulse Oximetry 94 93 Oxygen Delivery Method Oxygen Flow Rate 03/10/22 21:50 03/10/22 22:00 03/10/22 22:00 Temperature Pulse Rate 115 H Respiratory Rate 25 H Blood Pressure 102/59 L 110/56 L Pulse Oximetry 95 Oxygen Delivery Method Nasal Cannula Oxygen Flow Rate 2 03/10/22 22:10 03/10/22 22:10 03/10/22 22:20 Temperature Pulse Rate 117 H 117 H Respiratory Rate 27 H 26 H Blood Pressure 108/55 L Pulse Oximetry 95 95 Oxygen Delivery Method Nasal Cannula Nasal Cannula Oxygen Flow Rate 2 2 03/10/22 22:20 03/10/22 22:30 03/10/22 22:43 Temperature Pulse Rate 118 H Respiratory Rate Blood Pressure 98/55 L 98/53 L Pulse Oximetry 96 Oxygen Delivery Method Nasal Cannula Oxygen Flow Rate 2 03/10/22 22:43 03/10/22 22:58 03/10/22 22:58 Temperature Pulse Rate 128 H 106 H Respiratory Rate 24 23 Blood Pressure 91/50 L Pulse Oximetry 97 Oxygen Delivery Method Oxygen Flow Rate Oxygen Delivery Method Nasal Cannula Oxygen Flow Rate 2 Narrative Exam Narrative: Patient was in respiratory distress, significant tachycardia, lying in the bed, able to make a reasonable conversation, follows commands. He does have sign ificant chronic skin changes of lower extremities and nonpitting pedal edema that he says not any different from before. He does have poor air entry in both lung gray at the bases but did not appreciate any crackles but given his obesity it is hard to assess his overall lung function. Obesity. Constitutional, HEENT, eyes, neck, respiratory, cardiovascular, GI, skin, neuro, extremity, psych examination done, negative other than as mentioned above. Objective Labs Result Diagrams: 03/10/22 17:15 03/10/22 17:15 Labs: Laboratory Results - last 24 hr 03/10/22 03/10/22 03/10/22 17:15 17:15 17:15 WBC 3.4 L RBC 4.35 L Hgb 13.1 L Hct 39.1 L MCV 89.9 MCH 30.1 MCHC 33.4 RDW 14.3 Plt Count 139 L Neut % (Auto) 57.6 Lymph % (Auto) 24.4 L Rock % (Auto) 16.1 H Eos % (Auto) 1.4 L Baso % (Auto) 0.5 Neut # (Auto) 1900 Lymph # (Auto) 800 L Rock # (Auto) 500 Eos # (Auto) 0 Baso # (Auto) 0 PT 22.4 H INR 1.9 H Sodium 139 Potassium 4.3 Chloride 103 Carbon Dioxide 24 BUN 40 H Creatinine 1.31 H Estimated GFR 56 L BUN/Creatinine Ratio 30.5 H Glucose 88 Lactate Calcium 8.6 Total Bilirubin 1.0 AST 80 H ALT 44 Alkaline Phosphatase 101 Troponin I 0.023 NT-Pro-B Natriuret Pep 2660 H Total Protein 7.6 Albumin 4.4 Globulin 3.2 Albumin/Globulin Ratio 1.4 03/10/22 17:15 WBC RBC Hgb Hct MCV MCH MCHC RDW Plt Count Neut % (Auto) Lymph % (Auto) Rock % (Auto) Eos % (Auto) Baso % (Auto) Neut # (Auto) Lymph # (Auto) Rock # (Auto) Eos # (Auto) Baso # (Auto) PT INR Sodium Potassium Chloride Carbon Dioxide BUN Creatinine Estimated GFR BUN/Creatinine Ratio Glucose Lactate 1.8 Calcium Total Bilirubin AST ALT Alkaline Phosphatase Troponin I NT-Pro-B Natriuret Pep Total Protein Albumin Globulin Albumin/Globulin Ratio Assessment & Plan Assessment and plan (1) Atrial fibrillation with RVR: Status: Acute (2) Congestive heart failure: Qualifiers: Heart failure chronicity: acute on chronic Heart failure type: unspecified Qualified Code(s): I50.9 - Heart failure, unspecified Status: Acute (3) Influenza A: Status: Acute (4) LEMS (Lambert-Eaton myasthenic syndrome): Status: Acute Assessment & Plan narrative: Atrial fibrillation with RVR causing significant hypotension, borderline cardiogenic shock -improved with IV digoxin and IV fluids -continuing IV fluids, we will consider IV amiodarone if his blood pressures continues to be low. Most likely AFib RVR is precipitated because of the influenza infection. Patient is clinically dehydrated. Extreme caution with IV fluids given his history of heart failure in the past, we will continue to monitor the patient in ICU. When I saw the patient in the ICU his heart rate is already improving, we are not starting IV Cardizem or IV amiodarone at this time, we will continue to watch him closely. Hopefully we can avoid central line placement and also further medication if he continues to improve. Influenza a infection positive, symptomatic for more than 7 days, we will not be benefitted with the Tamiflu at this time. Symptomatic therapy recommended. Obesity secondary to excess calories -possibility of obesity hypoventilatory syndrome -outpatient sleep study recommended Acute kidney injury most likely prerenal secondary to dehydration and poor oral intake on top of influenza a infection, repeat BMP in the morning follow up. Mild thrombocytopenia, leukopenia most likely infection related reaction Patient meets criteria for sepsis secondary to influenza A given white count less than 4 and tachycardia at the time of admission, improving. Continue anticoagulation in setting of AFib, continue to monitor INR. Diet for GI prophylaxis. Patient is full code. I called his daughter to give an update, unable to reach her, we will try to call her again in the morning. Care plan extensively discussed with the patient and he agreed with the plan. Time Spent With Patient Critical Care time: I spent a total of [] minutes of critical care time on this patient's care today; this time is exclusive of procedural time. Quality VTE Deep Vein Thrombosis/Pulmonary Embolism Present on Admission: No
--- NOTE | 2022-03-10 23:19 | DI.ECHO.S_ITS ---
[place] +---------+ [facility] +---------+ : : [address] : : : : [id number] : : : : Phone: [phone] Echocardiogram Report + :Name: MICHELE DAVIS Study Date: 03/11/2022 Height: 70 in : :[facility] ReadingLocation: Weight: 265 lb : : Gender: Male BSA: 2.4 m2 : :: 1945 Age: 76 yrs BP: 116/63 mmHg: :Reason For Study: Atrial fibrillation : :Ordering Physician: Ze, : :Dominik Performed By: Sudhir Bowles : :Referring: Dominik Kunz : + Interpretation Summary Afib with controlled rate. Mildly dilated LV with mild concentric LVH. Normal wall motion and left ventricular systolic function ejection fraction is estimated at 55-60%. Severe left atrial enlargement and mild right atrial enlargement. Borderline dilated RV with normal RV function. No significant valvular abnormalities. There is a pacing lead traversing the tricuspid valve. Estimated PA systolic pressure is 38 mm Hg assuming RA pressure of 3 mm Hg. No prior study at available for comparison. Procedure: A two-dimensional transthoracic echocardiogram with color flow and Doppler was performed. The study quality was technically adequate. There is no prior echocardiogram noted for this patient. Left Ventricle: The left ventricle is mildly dilated. There is normal left ventricular wall thickness. Left ventricular systolic function is normal. The ejection fraction is estimated to be 55-60%. There are no focal wall motion abnormalities. Right Ventricle: The right ventricle is borderline dilated. The right ventricular systolic function is normal. Atria: The left atrium is severely dilated. The right atrium is mildly dilated. Mitral Valve: The mitral valve leaflets appear mildly thickened, but open well. There is mild mitral regurgitation. Aortic Valve: The aortic valve is normal in structure and function. No aortic regurgitation is present. Tricuspid Valve: The tricuspid valve is normal in structure and function. There is mild tricuspid regurgitation. The right ventricular systolic pressure is estimated to be at least 38 mmHg based on an estimated right atrial pressure of 3 mm Hg. Pulmonic Valve: The pulmonic valve is normal in structure and function. There is no pulmonic valvular regurgitation. Great Vessels: The aortic root is normal size. The dimensions of the ascending aorta are normal. The IVC is of normal diameter and collapses greater than 50% with a sniff. This suggests a low right atrial pressure of 3 mm Hg. Pericardium/ Pleura There is no pericardial effusion. There is no pleural effusion. MMode/2D Measurements & Calculations LVIDd: 6.1 cm LVOT diam: 2.2 cm LVIDs: 4.2 cm Ao root diam: 3.3 cm FS: 31.8 % asc Aorta Diam: 3.7 cm IVSd: 1.1 cm LVPWd: 1.0 cm LV ingram. diameter/BSA (cm/m^2): 2.6 LV sys. diameter/BSA (cm/m^2): 1.8 LA A2 area: 31.9 cm2 RA long axis: 6.7 cm LA A4 area: 30.2 cm2 RA area: 24.6 cm2 LA length (vol): 6.5 cm RA vol: 76.4 ml LA vol: 125.1 ml RA : 32.5 ml/m2 LA vol index: 53.2 ml/m2 TAPSE: 3.0 cm Doppler Measurements & Calculations Ao V2 max: 133.6 cm/sec LVOT Max Son: 102.1 cm/sec Ao V2 mean: 87.9 cm/sec LV V1 max P.2 mmHg Ao max P.1 mmHg LV V1 VTI: 21.9 cm Ao mean P.6 mmHg JEFFERY(I,D): 3.2 cm2 Ao V2 VTI: 25.4 cm JEFFERY(V,D): 2.9 cm2 sev ratio: 0.86 JEFFERY indexed to BSA (cm^2/m^2): 1.4 MV E max son: 115.8 cm/sec TR max son: 296.2 cm/sec MV A max son: 37.9 cm/sec TR max P.1 mmHg MV E/A: 3.1 MV dec time: 0.26 sec SV(LVOT): 82.2 ml Electronically signed by: Trinity Rodarte M.D. on Reading Physician:03/11/2022 01:14 PM
[2022-03-11] VITALS (33 sets, daily range): BP systolic 82–133; BP diastolic 50–67; PULSE 60–64; RESP 21–36; TEMP 36.3; O2SAT 91–98; BMI 38.4
[2022-03-11] MEDS: DIGOXIN 500 MCG/2 ML AMPUL 250 MCG IV ×2 (00:20→05:50)
--- NOTE | 2022-03-11 00:39 | PC.NURSE ---
Admit/Night Note-Patient brought to ICU room 231 at 2235. A/Ox3, slider board required d/t weakness and hypotension. Initial BP 98/58(68) HR A-fib 110-120, SpO2 97% on 2L NC, denies dyspnea or chest pain, or palpitations. IVF 1/2NS @ 100ml/hr started, given snack. At 2358, BP 79/50(60) HR 60s, paced reported to Hospitalist, IV Digoxin ordered. Patient is in Droplet Precautions for influenze-A.
[2022-03-11 04:40] LABS: Hematocrit 35.8 % (41-53); Hemoglobin 11.9 g/dL (13.5-17.5); Mean Corpuscular HGB Conc 33.2 % (30-36); Mean Corpuscular Hemoglobin 29.8 PG (26-34); Mean Corpuscular Volume 89.7 fL (80-100); Platelet Count 109 X10^3/uL (150-400); Red Blood Cell Count 3.99 X10^6/uL (4.5-5.9); Red Cell Distribution Width 14.3 % (11.6-14.8)
[2022-03-11 04:45] LABS: Alanine Aminotransferase 41 IU/L (<50); Albumin 3.7 g/dL (3.5-5.0); Albumin Globulin Ratio 1.4 (1.0-2.8); Alkaline Phosphatase 81 U/L (38-126); Aspartate Aminotransferase 60 IU/L (17-59); BUN Creatinine Ratio 33.3 (6-22); Bilirubin Total 0.7 mg/dL (0.2-1.3); Blood Urea Nitrogen 39 mg/dL (9-20); Calcium 7.6 mg/dL (8.4-10.2); Carbon Dioxide 21 mmol/L (22-32); Chloride 107 mmol/L (98-107); Estimated Glomerular Filt Rate > 60 mL/min (>60); Globulin 2.7 g/dL (1.7-4.1); Glucose 115 mg/dL (80-110); HEMOLYSIS < 15 (0-50); Potassium 4.6 mmol/L (3.4-5.1); Sodium 137 mmol/L (137-145); Total Protein 6.4 g/dL (6.3-8.2)
[2022-03-11 04:54] LABS: INR 2.1 (0.9-1.3); Prothrombin Time 23.7 SECONDS (10.1-12.7)
[2022-03-11 04:57] LABS: Add Manual Diff / Slide Review YES; NT-proBNP (BNP-Adult 18+) 2290 pg/mL (<450); Troponin I 0.021 ng/mL (0.01-0.034); White Blood Cell Count 1.8 X10^3/uL (4.5-11.0)
[2022-03-11 07:39] LABS: Neutrophils Absolute Manual 1296 /uL (3000-5900); RBC Morphology Normal Morphology; Total Cells Counted 50
[2022-03-11] MEDS: SODIUM CHLORIDE 0.45% 1,000 ML 100 ML IV (08:40)
[2022-03-11] MEDS: MYCOPHENOLATE MOFETIL 500 MG TABLET 1000 MG PO (11:02)
[2022-03-11] MEDS: PYRIDOSTIGMINE 60 MG TABLET PO (11:02)
--- NOTE | 2022-03-11 11:17 | CM.DANOTE ---
Initial Janice DCP Assessment Note Patient is 76 y/o male who is admitted to ICU due to concern for AFib RVR and Influenza A. Patient has hx of CHF, LEMS, Chronic AFib and Hypertension. Patient does not have PCP listed Mostlikely through [facility]. Patient has Medicare and out of state [employer] insurance. Due to influenza A, FELLMONGERY WORKER unable to enter room. FELLMONGERY WORKER attempted to call patient but patient unavailable to answer. Per RN, Patient is A/Ox4 and responding well to IV medication. Patient has d/c orders for today and is medically clear for d/c. Per RN, patient is setting up a ride for transportation home upon d/c. Per EMR, patient resides independently and receives care through [facility]. No DCP needs at this time, FELLMONGERY WORKER to f/u if needs arrive prior to d/c to home today. Plan: Patient to d/c to home upon medical clearance via POV from family or friend. RENÉE Delarosa Discharge Planning/Care Management CM Discharge Assessment Start: 03/11/22 11:13 Freq: Status: Active Protocol: Document 03/11/22 11:14 LN (Rec: 03/11/22 11:15 LN [id number]) Discharge Planning Assessment Assigned Repairer RENÉE He Advance Directives? No Advance Directives on File No History Provided By Medical Record Has Patient been admitted in last 30 No days? Prior Living Arrangements House Household Members none Type of transporation used prior to Drives own vehicle admit Independent with ADL's Yes Is patient alert and oriented? Yes Discharge Plan Home Referrals Initiated None needed Please Provide Date Initial DC 03/11/22 Assessment Was Performed
--- NOTE | 2022-03-11 11:22 | P.DS_ITS ---
History of Present Illness History of Present Illness Date Patient Seen: 03/11/22 Chief complaint: Congestion, SOB, Sent from [facility] Narrative: Per admitting provider, 76-year-old gentleman who lives independently [facility], with a history of atrial fibrillation pacemaker placed approximately a year ago currently anticoagulated on Coumadin, congestive heart failure, Lambert- Eaton syndrome, hypertension presents with 10-12 days of upper respiratory infection complaints, congestion, nasal discharge, cough not complaining specifically of fevers but progressive weakness to the point where he states he is ?weak as a kitten?.? He actually had trouble seeking care because he was not strong enough to actually get to care and did not consider calling 911.? Is more short of breath lying flat but does not complain of worsening lower extremity edema.? He also notes that he has been lying down for the better part of 2 weeks and his edema is always better in that situation.? He has been a little bit nauseated but is not vomiting, no specific abdominal pain, constipation or diarrhea.? Low-grade headaches have completely resolved but nasal discharge continues.? He complains of mild scratchy throat.? He has not noted rapid heart rate or palpitations. Patient in the ER was given 500 cc IV fluid for hypotension, also IV digoxin, when I saw the patient he was already feeling better at that time but continues to have hypotension with tachycardic episodes of 120-130. He says that his breathing is significantly improved and feeling much better. He confirms poor oral intake, fevers, not feeling well for past 1 week. Discussed with the ER physician for a possible Tamiflu but given his illness more than a week, do not see any reason to treat him at this time. Denies any urinary symptoms, denies any abdominal pain and denies any chest pain. Discharge Providers Provider Date of admission: 03/10/22 20:59 Discharge Date: 03/11/22 Primary care physician: Doctor Pritesh MD Discharge provider: Charan Lancaster, Summary Hospital Course Discharge Diagnosis: (1) Atrial fibrillation with RVR: ?Status:?Acute 2) chronic diastolic heart failure (3) Influenza A: ?Status:?Acute (4) LEMS (Lambert-Eaton myasthenic syndrome): ?Status:?Acute 5) Acute respiratory failure with hypoxia 6) Obesity secondary to excess calories 7) Elevated creatinine 8) Sepsis secondary to #3 with elevated creatinine and acute respiratory failure with hypoxia. Hospital Course: This is a 76 year old male with a past medical history of Lambert-Eaton, chronic atrial fibrillation, congestive heart failure who was admitted with AFib with RVR and hypotension in the setting of acute influenza A infection and acute respiratory failure with hypoxia. He met sepsis criteria in the setting of flu. Over concern for heart failure he did not receive sepsis boluses but h appeared clinically dehydrated and was cautiously given fluids. There was no evidence for bacterial superinfection and no antibiotics were needed. He was given digoxin and quickly had his rate improve. He was resumed on home metoprolol with improvement much more quickly than expected and the following morning he felt well, was rate controlled, with an unremarkable echocardiogram, and was not requiring supplemental oxygen. He was discharged home. Time Spent with Patient Time spent: Greater than 30 minutes Exam Vital Signs (past 8 hours): - 03/11/22 03:30 03/11/22 03:30 03/11/22 04:00 Temperature Pulse Rate 60 Respiratory Rate 22 Blood Pressure 102/58 L 103/59 L Pulse Oximetry 93 Oxygen Delivery Method Oxygen Flow Rate 03/11/22 04:00 03/11/22 04:30 03/11/22 05:00 Temperature Pulse Rate 60 60 60 Respiratory Rate 35 H 32 H 30 H Blood Pressure Pulse Oximetry 95 95 97 Oxygen Delivery Method Oxygen Flow Rate 2 03/11/22 05:00 03/11/22 05:50 03/11/22 05:15 Temperature Pulse Rate 60 Respiratory Rate Blood Pressure 97/59 L 93/57 L Pulse Oximetry Oxygen Delivery Method Room Air Oxygen Flow Rate 03/11/22 05:15 03/11/22 05:30 03/11/22 05:30 Temperature Pulse Rate 60 60 Respiratory Rate 31 H 31 H Blood Pressure 97/59 L Pulse Oximetry 98 96 Oxygen Delivery Method Oxygen Flow Rate 03/11/22 06:00 03/11/22 06:00 03/11/22 06:30 Temperature 97.3 F L Pulse Rate 60 Respiratory Rate 29 H Blood Pressure 98/67 98/56 L Pulse Oximetry 97 Oxygen Delivery Method Oxygen Flow Rate 0 03/11/22 06:30 03/11/22 07:00 03/11/22 07:00 Temperature Pulse Rate 61 60 Respiratory Rate 25 H 24 Blood Pressure 106/56 L Pulse Oximetry 93 93 Oxygen Delivery Method Oxygen Flow Rate 0 03/11/22 07:30 03/11/22 07:30 03/11/22 08:00 Temperature Pulse Rate 60 60 Respiratory Rate 23 31 H Blood Pressure 100/56 L Pulse Oximetry 91 94 Oxygen Delivery Method Oxygen Flow Rate 03/11/22 08:01 03/11/22 08:01 Temperature Pulse Rate 60 Respiratory Rate 30 H Blood Pressure 126/66 Pulse Oximetry 94 Oxygen Delivery Method Oxygen Flow Rate Oxygen Delivery Method Room Air Oxygen Flow Rate 0 Const General: comfortable and well developed Chest Chest: normal inspection of the chest Cardio Rate: regular rate Rhythm: abnormal rhythm Heart Sounds: S1 normal, S2 normal, no gallops, no murmurs and no rubs GI Other: S NT ND Neuro General: patient alert, patient awake and patient oriented x3 Extrem General: no pedal edema, No calf tenderness, No clubbing and No cyanosis Objective Labs Result Diagrams: 03/11/22 04:14 03/11/22 04:14 Labs: Laboratory Results - last 24 hr 03/10/22 03/10/22 03/10/22 17:15 17:15 17:15 WBC 3.4 L RBC 4.35 L Hgb 13.1 L Hct 39.1 L MCV 89.9 MCH 30.1 MCHC 33.4 RDW 14.3 Plt Count 139 L Neut % (Auto) 57.6 Lymph % (Auto) 24.4 L [place] % (Auto) 16.1 H Eos % (Auto) 1.4 L Baso % (Auto) 0.5 Neut # (Auto) 1900 Lymph # (Auto) 800 L [place] # (Auto) 500 Eos # (Auto) 0 Baso # (Auto) 0 Total Counted Seg Neutrophils % Band Neutrophils % Lymphocytes % (Manual) Atypical Lymphs % Monocytes % (Manual) Neutrophils # (Manual) RBC Morphology PT 22.4 H INR 1.9 H Sodium 139 Potassium 4.3 Chloride 103 Carbon Dioxide 24 BUN 40 H Creatinine 1.31 H Estimated GFR 56 L BUN/Creatinine Ratio 30.5 H Glucose 88 Lactate Calcium 8.6 Total Bilirubin 1.0 AST 80 H ALT 44 Alkaline Phosphatase 101 Troponin I 0.023 NT-Pro-B Natriuret Pep 2660 H Total Protein 7.6 Albumin 4.4 Globulin 3.2 Albumin/Globulin Ratio 1.4 Nasal Screen MRSA (PCR) 03/10/22 03/10/22 03/11/22 17:15 22:59 04:14 WBC 1.8 L* RBC 3.99 L Hgb 11.9 L Hct 35.8 L MCV 89.7 MCH 29.8 MCHC 33.2 RDW 14.3 Plt Count 109 L Neut % (Auto) Not Reportable Lymph % (Auto) Not Reportable [place] % (Auto) Not Reportable Eos % (Auto) Not Reportable Baso % (Auto) Not Reportable Neut # (Auto) Lymph # (Auto) Not Reportable [place] # (Auto) Not Reportable Eos # (Auto) Baso # (Auto) Not Reportable Total Counted 50 Seg Neutrophils % 70.0 Band Neutrophils % 2.0 L Lymphocytes % (Manual) 18.0 L Atypical Lymphs % 6.0 H Monocytes % (Manual) 4.0 Neutrophils # (Manual) 1296 L RBC Morphology Normal morphology PT INR Sodium Potassium Chloride Carbon Dioxide BUN Creatinine Estimated GFR BUN/Creatinine Ratio Glucose Lactate 1.8 Calcium Total Bilirubin AST ALT Alkaline Phosphatase Troponin I NT-Pro-B Natriuret Pep Total Protein Albumin Globulin Albumin/Globulin Ratio Nasal Screen MRSA (PCR) Negative for mrsa 03/11/22 03/11/22 04:14 04:14 WBC RBC Hgb Hct MCV MCH MCHC RDW Plt Count Neut % (Auto) Lymph % (Auto) [place] % (Auto) Eos % (Auto) Baso % (Auto) Neut # (Auto) Lymph # (Auto) [place] # (Auto) Eos # (Auto) Baso # (Auto) Total Counted Seg Neutrophils % Band Neutrophils % Lymphocytes % (Manual) Atypical Lymphs % Monocytes % (Manual) Neutrophils # (Manual) RBC Morphology PT 23.7 H INR 2.1 H Sodium 137 Potassium 4.6 Chloride 107 Carbon Dioxide 21 L BUN 39 H Creatinine 1.17 Estimated GFR > 60 BUN/Creatinine Ratio 33.3 H Glucose 115 H Lactate Calcium 7.6 L Total Bilirubin 0.7 AST 60 H ALT 41 Alkaline Phosphatase 81 Troponin I 0.021 NT-Pro-B Natriuret Pep 2290 H Total Protein 6.4 Albumin 3.7 Globulin 2.7 Albumin/Globulin Ratio 1.4 Nasal Screen MRSA (PCR) [facility] Medical History Chronic atrial fibrillation Congestive heart failure Hypertension LEMS (Lambert-Eaton myasthenic syndrome) Surgical History History of permanent cardiac pacemaker placement Social History household members: none Smoking Status: Never smoker alcohol intake: current Discharge Plan Discharge Plan Patient Disposition: Home Provider Discharge Comment: You were admitted to the hospital with atrial fibrillation and low BP and the flu. You improved with time and symptom help. Hold BP medications as noted below and please note the following changes over the weekend. 1) for this weekend, take 1 pill of metoprolol daily. Resume usual 1.5 pills on Monday. 2) hold diuretic medications (furosemide or torsemide), restart Monday. Resume spironolactone on Monday. 3. Resume benazepril on Monday as well. I would recommend getting a home BP cuff as well. Discharge orders & Medications Prescriptions: Continued Firdapse 10 mg tablet 10 mg PO 5XD metoprolol succinate 100 mg tablet extended release 24 hr 150 mg PO DAILY Label Comments: TAKE 1 1 2 TABLETS BY MOUTH DAILY mycophenolate mofetil 500 mg tablet 2 tab PO BID Label Comments: TAKE TWO TABLETS BY MOUTH 2 TIMES A DAY pyridostigmine bromide 60 mg tablet 1 tab PO BID Label Comments: TAKE ONE TABLET BY MOUTH 3 TIMES A DAY warfarin 5 mg tablet 1 tab PO DAILY Label Comments: TAKE 1 TABLET DAILY, DIRECTED DOSE MAY VARY allopurinol 300 mg tablet 300 mg PO DAILY Label Comments: TAKE 1 TABLET BY MOUTH DAILY armodafinil [Nuvigil] 150 mg Tablet 75 mg PO QAM Rx Instructions: takes half of 150mg tab albuterol sulfate 90 mcg/actuation HFA aerosol inhaler 1 puff INHALATION Q4-6H PRN (Reason: shortness of breath or wheezing) Qty: 8.5 0RF Discontinued torsemide 20 mg tablet 20 mg PO SEEINSTR Label Comments: Every other week alternating with Furosemide spironolactone 25 mg tablet 12.5 mg PO DAILY Label Comments: TAKE 1 2 TABLET BY MOUTH DAILY furosemide 80 mg tablet 1 tab PO SEEINSTR Label Comments: TAKE 1 TABLET BY MOUTH ONCE DAILY FOR 1 WEEK THEN STOP FOR 1 WEEK ALTERNATING WITH TORSEMIDE Rx Instructions: Patient states he no longer take. benazepril 20 mg tablet 10 mg PO DAILY Follow up/Referrals: Doctor Jonas MD [Primary Care Provider] - Diet/Activity/Treatments Diet: Diet as Tolerated Activity: As tolerated Discharge Data Primary Care Provider: Doctor Pritesh Quality VTE Deep Vein Thrombosis/Pulmonary Embolism Present on Admission: No
== END 2022-03-11 12:15 | disposition home or self-care (01) | DRG 871 ==
LOC: ED 19:14 → AC 21:00 → ICU 21:33
PROVIDERS: Emergency Medicine; Admitting Provider Family Medicine; Emergency Provider Emergency Medicine; Referring Provider Emergency Medicine; Visit Provider Family Medicine
DX: A41.9 Sepsis, unspecified organism (principal); J96.00 Acute respiratory failure, unspecified whether with hypoxia or hypercapnia; I48.20 Chronic atrial fibrillation, unspecified; G70.80 Lambert-Eaton syndrome, unspecified; N17.9 Acute kidney failure, unspecified; I50.32 Chronic diastolic (congestive) heart failure; D84.821 Immunodeficiency due to drugs; J10.1 Influenza due to other identified influenza virus with other respiratory manifestations; I11.0 Hypertensive heart disease with heart failure; R65.20 Severe sepsis without septic shock; Z95.0 Presence of cardiac pacemaker; Z79.60 Long term (current) use of unspecified immunomodulators and immunosuppressants; Z79.01 Long term (current) use of anticoagulants; Z20.822 Contact with and (suspected) exposure to COVID-19; R05.9 Cough, unspecified
CPT/HCPCS: 0241U; 36415; 71045; 80053; 83605; 83880; 84484; 85007; 85025; 85610; 87797; 93005; 93306; 96374; 99285; 99291; J1100; J1160; J7050

== ENCOUNTER 2022-06-15 00:44 | Emergency (ER) | payer MEDICARE, OTHER, SELFPAY ==
[2022-03-11 00:32] VITALS: BMI 38.4
[2022-06-15 00:52] VITALS: BP 130/62; PULSE 60; RESP 18; O2SAT 99; BMI 38.7
[2022-06-15 00:57] VITALS: TEMP 36.1
[2022-06-15 00:59] VITALS: PULSE 62; O2SAT 99
[2022-06-15 01:00] VITALS: BP 133/63; PULSE 60; O2SAT 100
[2022-06-15] MEDS: OXYMETAZOLINE NASAL SPRAY 15 ML 2 SPRAYS NASAL (01:06)
[2022-06-15] MEDS: ONDANSETRON 4 MG ODT SL (01:09)
--- NOTE | 2022-06-15 01:11 | ED_ITS ---
HPI - General Adult General Chief complaint: Nasal Problem Stated complaint: Nose Bleed Time Seen by Provider: 06/15/22 00:53 Source: patient Mode of arrival: Ambulatory Limitations: no limitations History of Present Illness HPI narrative: Patient is a 77-year-old male on Coumadin who is here for evaluation of a nosebleed. He states he gets frequent nosebleeds but often he is able to control them at home. When he is having currently he has been unable to control for the past couple hours. He normally tries to shows tissues up into his nose as a packing which is what he did this evening but has been unsuccessful stopping any of the bleeding. No trauma. Related Data Home Medications Medication Instructions Recorded Confirmed allopurinol 300 mg tablet 300 mg PO DAILY 12/28/17 03/11/22 armodafinil 150 mg tablet (Nuvigil) 75 mg PO QAM 12/28/17 03/11/22 metoprolol succinate 100 mg 150 mg PO DAILY 12/28/17 03/11/22 tablet,extended release 24 hr mycophenolate mofetil 500 mg tablet 2 tab PO BID 12/28/17 03/11/22 pyridostigmine bromide 60 mg tablet 1 tab PO BID 12/28/17 03/11/22 warfarin 5 mg tablet 1 tab PO DAILY 12/28/17 03/11/22 amifampridine phosphate 10 mg 10 mg PO 5XD 03/10/22 03/11/22 tablet (Firdapse) Previous Rx's Medication Instructions Recorded albuterol sulfate 90 mcg/actuation 1 puff inhalation Q4-6H PRN 12/28/17 aerosol inhaler shortness of breath or wheezing #8.5 grams Allergies Allergy/AdvReac Type Severity Reaction Status Date / Time testosterone Allergy Unknown Verified 03/10/22 15:37 Review of Systems Constitutional Constitutional: Reports system reviewed and no additional complaints, except as documented ENT Ears, Nose, Mouth, and Throat: Reports system reviewed and no additional complaints, except as documented Hematologic/Lymphatic On Anticoagulants: Yes Patient History Medical History Chronic atrial fibrillation Congestive heart failure Hypertension LEMS (Lambert-Eaton myasthenic syndrome) Surgical History History of permanent cardiac pacemaker placement Social History household members: none Smoking Status: Never smoker alcohol intake: current Smoking Status: Never smoker alcohol intake frequency: holidays/special occasions only Substance Use Type: does not use Exam Initial Vital Signs Initial Vital Signs: Vital Signs Pulse Rate 60 06/15/22 00:52 Respiratory Rate 18 06/15/22 00:52 Blood Pressure 130/62 06/15/22 00:52 Pulse Oximetry 99 06/15/22 00:52 Oxygen Delivery Method Room Air 06/15/22 00:52 Const General: cooperative and comfortable HENMT Nose: epistaxis Resp Effort & Inspection: normal respiratory effort Neuro General: patient alert and patient awake Procedures Epistaxis Control Nostril: right Nose Prepped With: oxymetazoline Direct Inspection: yes and unable to visualize Clots Removed by: blowing nose Cautery Used: none Patient Tolerated Procedure: well Course Orders Ordered: ED Orders 06/15/22 01:00 Prothrombin Time INR Stat Discontinued Medications Ondansetron HCl (Ondansetron 4 Mg Odt) 4 mg SL NOW ONE Stop: 06/15/22 01:08 Last Admin: 06/15/22 01:09 Dose: 4 mg Documented By: FABI Oxymetazoline HCl (Oxymetazoline Nasal [place] 15 Ml) 2 sprays NASAL NOW ONE Stop: 06/15/22 00:59 Last Admin: 06/15/22 01:06 Dose: 2 sprays Documented By: FABI Vital Signs Vital signs: Vital Signs - 8 hr 06/15/22 00:52 06/15/22 00:57 06/15/22 00:59 Temperature 96.9 F L Pulse Rate 60 62 Respiratory Rate 18 Blood Pressure 130/62 Pulse Oximetry 99 99 Oxygen Delivery Method Room Air 06/15/22 01:00 06/15/22 01:00 06/15/22 02:02 Temperature Pulse Rate 60 60 Respiratory Rate 18 Blood Pressure 133/63 102/57 L Pulse Oximetry 100 98 Oxygen Delivery Method Room Air Medical Decision Making Lab Data Labs: Lab Results 06/15/22 Range/Units 01:00 PT 30.9 H (10.1-12.7) SECONDS INR 2.7 H (0.9-1.3) MDM Narrative Medical decision making narrative: Patient's bleeding was coming from the right nostril. Upon arrival I had him blow his nose. This did result in removal of quite a bit of blood clots. Afrin was used and a nasal clamp was placed for approximately 15 minutes. No further bleeding noted. The clamp was removed and he was observed for period of time afterwards. There appeared to be no continued bleeding. Patient was discharged home with instructions on how he can use the nasal clamp at home and Afrin at home to try to control any potential further bleeding. He was given return precautions. He expressed understanding and agreement. Discharge Plan Departure Patient Disposition: Home Clinical Impression: Epistaxis Instructions: DI for Nosebleed Activity Restrictions/Additional Instructions: Continue to take all of your medications as directed. Your INR today is 2.7. Try your best not to disturb your nose like we discussed. Return to the emergency department for any new or worsening symptoms. Prescriptions: No Action Firdapse 10 mg tablet 10 mg PO 5XD metoprolol succinate 100 mg tablet extended release 24 hr 150 mg PO DAILY Patient Comments: TAKE 1 1 2 TABLETS BY MOUTH DAILY mycophenolate mofetil 500 mg tablet 2 tab PO BID Patient Comments: TAKE TWO TABLETS BY MOUTH 2 TIMES A DAY pyridostigmine bromide 60 mg tablet 1 tab PO BID Patient Comments: TAKE ONE TABLET BY MOUTH 3 TIMES A DAY warfarin 5 mg tablet 1 tab PO DAILY Patient Comments: TAKE 1 TABLET DAILY, DIRECTED DOSE MAY VARY allopurinol 300 mg tablet 300 mg PO DAILY Patient Comments: TAKE 1 TABLET BY MOUTH DAILY armodafinil [Nuvigil] 150 mg Tablet 75 mg PO QAM Rx Instructions: takes half of 150mg tab albuterol sulfate 90 mcg/actuation HFA aerosol inhaler 1 puff INHALATION Q4-6H PRN (Reason: shortness of breath or wheezing) Qty: 8.5 0RF Referrals: Miscellaneous,Doctor, MD [Primary Care Provider] - Stand Alone Forms: Patient Portal/API
[2022-06-15 01:46] LABS: INR 2.7 (0.9-1.3); Prothrombin Time 30.9 SECONDS (10.1-12.7)
[2022-06-15 02:02] VITALS: BP 102/57; PULSE 60; RESP 18; O2SAT 98
== END 2022-06-15 02:20 | disposition home or self-care (01) ==
PROVIDERS: Emergency Provider Emergency Medicine
DX: R04.0 Epistaxis (principal); Z79.01 Long term (current) use of anticoagulants
CPT/HCPCS: 30901; 85610; 99283; A9270

== ENCOUNTER 2022-09-13 08:24 | Emergency (ER) | payer MEDICARE, OTHER, SELFPAY ==
[2022-03-11 00:32] VITALS: BMI 38.4
[2022-09-13 08:29] VITALS: BP 122/64; PULSE 59; RESP 24; TEMP 35.9; O2SAT 99; BMI 39.3
[2022-09-13] MEDS: OXYMETAZOLINE NASAL SPRAY 15 ML 2 SPRAYS NASAL (08:48)
--- NOTE | 2022-09-13 09:00 | ED.EPISTAXIS ---
HPI - Epistaxis General Chief complaint: Nasal Problem Stated complaint: nose bleeding since 2:30 am takes warfin Time Seen by Provider: 09/13/22 08:45 Source: patient Mode of arrival: Ambulatory History of Present Illness HPI Narrative: Patient is 77-year-old male history of atrial fibrillation on warfarin presenting today with epistaxis. He reports that he had a pituitary tumor removed be an intranasal up wrote stating that his septum is abnormal. Blood is coming out both ends but seemed to start on the right. He has been unable to get it under control. It started roughly around 2 or 3:00 a.m. Related Data Home Medications Medication Instructions Recorded Confirmed allopurinol 300 mg tablet 300 mg PO DAILY 12/28/17 03/11/22 armodafinil 150 mg tablet (Nuvigil) 75 mg PO QAM 12/28/17 03/11/22 metoprolol succinate 100 mg 150 mg PO DAILY 12/28/17 03/11/22 tablet,extended release 24 hr mycophenolate mofetil 500 mg tablet 2 tab PO BID 12/28/17 03/11/22 pyridostigmine bromide 60 mg tablet 1 tab PO BID 12/28/17 03/11/22 warfarin 5 mg tablet 1 tab PO DAILY 12/28/17 03/11/22 amifampridine phosphate 10 mg 10 mg PO 5XD 03/10/22 03/11/22 tablet (Firdapse) Previous Rx's Medication Instructions Recorded albuterol sulfate 90 mcg/actuation 1 puff inhalation Q4-6H PRN 12/28/17 aerosol inhaler shortness of breath or wheezing #8.5 grams Allergies Allergy/AdvReac Type Severity Reaction Status Date / Time testosterone Allergy Unknown Verified 09/13/22 08:29 Review of Systems Review of Systems ROS Unobtainable: All systems reviewed & are unremarkable except as noted in HPI and below Patient History Medical History Chronic atrial fibrillation Congestive heart failure Hypertension LEMS (Lambert-Eaton myasthenic syndrome) Surgical History History of permanent cardiac pacemaker placement Social History household members: none Smoking Status: Never smoker alcohol intake: current Smoking Status: Never smoker alcohol intake frequency: holidays/special occasions only Substance Use Type: does not use Exam Initial Vital Signs Initial Vital Signs: Vital Signs Temperature 96.7 F L 09/13/22 08:29 Pulse Rate 59 L 09/13/22 08:29 Respiratory Rate 24 09/13/22 08:29 Blood Pressure 122/64 09/13/22 08:29 Pulse Oximetry 99 09/13/22 08:29 Oxygen Delivery Method Room Air 09/13/22 08:29 GENERAL: Alert pleasant 77 old male NOSE: Bright red blood by laterally CARDIOVASCULAR: peripheral pulses in tact, cap refill <2 sec RESPIRATORY: No respiratory distress, speaks in full sentences without difficulty EXTREMITIES: Normal range of motion, no clubbing or edema. Neurovascularly intact NEUROLOGICAL: Cranial nerves II through XII grossly intact. Normal gait and speech. SKIN: Warm, dry, no petechiae, no rashes or lesions. Procedures Epistaxis Control Nostril: right Nose Prepped With: oxymetazoline Direct Inspection: unable to visualize Clots Removed by: blowing nose Course Orders Ordered: ED Orders 09/13/22 09:09 CBC Auto Diff [Complete Blood Count AUTO DIFF] Stat Prothrombin Time INR Stat Discontinued Medications Oxymetazoline HCl (Oxymetazoline Nasal [place] 15 Ml) 2 sprays NASAL NOW ONE Stop: 09/13/22 08:46 Last Admin: 09/13/22 08:48 Dose: 2 sprays Documented By: NR Phytonadione (Phytonadione (Vit K1) 5 Mg Tablet) 5 mg PO NOW ONE Stop: 09/13/22 09:51 Last Admin: 09/13/22 09:56 Dose: 5 mg Documented By: AT Vital Signs Vital signs: Vital Signs - 8 hr 09/13/22 08:29 09/13/22 10:01 Temperature 96.7 F L Pulse Rate 59 L 60 Respiratory Rate 24 18 Blood Pressure 122/64 117/60 Pulse Oximetry 99 99 Oxygen Delivery Method Room Air Room Air MDM - Epistaxis Lab Data 09/13/22 09:09 Labs: Lab Results 09/13/22 09/13/22 Range/Units 09:09 09:09 WBC 4.0 L (4.5-11.0) X10^3/uL RBC 3.92 L (4.5-5.9) X10^6/uL Hgb 11.8 L (13.5-17.5) g/dL Hct 34.8 L (41-53) % MCV 88.6 (80-100) fL MCH 30.0 (26-34) PG MCHC 33.9 (30-36) % RDW 14.1 (11.6-14.8) % Plt Count 135 L (150-400) X10^3/uL Neut % (Auto) 56.5 (50-75) % Lymph % (Auto) 31.0 (25-40) % [place] % (Auto) 9.2 (3-14) % Eos % (Auto) 2.7 (2-4) % Baso % (Auto) 0.6 (0-2) % Neut # (Auto) 2300 (6931-3970) /uL Lymph # (Auto) 1200 (6547-4714) /uL [place] # (Auto) 400 (0-900) /uL Eos # (Auto) 100 (0-450) /uL Baso # (Auto) 0 (0-100) /uL PT 23.9 H (10.1-12.7) SECONDS INR 2.1 H (0.9-1.3) MDM Narrative Medical decision making narrative: Patient having extensive epistaxis coming out both nostrils. Patient was pretty sure it is coming out the right side. Rhino rocket placed on her right side. It quickly filled with blood and start continue to ooze around the rhino rocket. However it did eventually stop not coming out the left side not going down the pharynx. Dr. Hernandez ENT consulted recommends leaving the rhino rocket in reversing patient of INR and following up in clinic. Discussed at length with patient plan and leaving rhino rocket in. Along risk of reversing warfarin and risk of stroke versus continued bleeding. I suspect that patient will restart warfarin rather quickly soon as the bleeding stops. Discharge Plan Departure Patient Disposition: Home Clinical Impression: Epistaxis Instructions: DI for Nosebleed Activity Restrictions/Additional Instructions: *You have been diagnosed with nosebleed *What to do: At this time keep balloon in right nose. You have syringe if absolutely needed you can pull it out however be careful. Your INR today was 2.1, you were given 5 mg of vitamin K to help stop bleeding. Hold your warfarin until you have been seen by Dr. Hernandez, ENT. Without being on warfarin there is risk of stroke with your atrial fibrillation. You will need to start your warfarin again as soon as possible or talk to your provider about other options Do not use your CPAP while rhino rocket is in place *Continue to take medications as directed *Follow up with your primary care provider in 2-3 days or call [phone] *Return to ER if you should have increasing nosebleed pain fever or any new, worsening or concerning symptoms Prescriptions: No Action Firdapse 10 mg tablet 10 mg PO 5XD metoprolol succinate 100 mg tablet extended release 24 hr 150 mg PO DAILY Patient Comments: TAKE 1 1 2 TABLETS BY MOUTH DAILY mycophenolate mofetil 500 mg tablet 2 tab PO BID Patient Comments: TAKE TWO TABLETS BY MOUTH 2 TIMES A DAY pyridostigmine bromide 60 mg tablet 1 tab PO BID Patient Comments: TAKE ONE TABLET BY MOUTH 3 TIMES A DAY warfarin 5 mg tablet 1 tab PO DAILY Patient Comments: TAKE 1 TABLET DAILY, DIRECTED DOSE MAY VARY allopurinol 300 mg tablet 300 mg PO DAILY Patient Comments: TAKE 1 TABLET BY MOUTH DAILY armodafinil [Nuvigil] 150 mg Tablet 75 mg PO QAM Rx Instructions: takes half of 150mg tab albuterol sulfate 90 mcg/actuation HFA aerosol inhaler 1 puff INHALATION Q4-6H PRN (Reason: shortness of breath or wheezing) Qty: 8.5 0RF Referrals: Frantz Hernandez MD [Physician] - Miscellaneous,MD Crissy [Primary Care Provider] - Stand Alone Forms: Patient Portal/API
[2022-09-13 09:16] LABS: Add Manual Diff / Slide Review NO; Basophils Absolute Auto 0 /uL (0-100); Basophils Percent Auto 0.6 % (0-2); Eosinophils Absolute Auto 100 /uL (0-450); Eosinophils Percent Auto 2.7 % (2-4); Hematocrit 34.8 % (41-53); Hemoglobin 11.8 g/dL (13.5-17.5); Lymphocytes Absolute Auto 1200 /uL (1100-4500); Mean Corpuscular HGB Conc 33.9 % (30-36); Mean Corpuscular Volume 88.6 fL (80-100); Monocytes Absolute Auto 400 /uL (0-900); Monocytes Percent Auto 9.2 % (3-14); Neutrophils Absolute Auto 2300 /uL (1500-7000); Neutrophils Percent Auto 56.5 % (50-75); Platelet Count 135 X10^3/uL (150-400); Red Blood Cell Count 3.92 X10^6/uL (4.5-5.9); Red Cell Distribution Width 14.1 % (11.6-14.8)
[2022-09-13 09:23] LABS: INR 2.1 (0.9-1.3); Prothrombin Time 23.9 SECONDS (10.1-12.7)
[2022-09-13] MEDS: PHYTONADIONE (VIT K1) 5 MG TABLET PO (09:56)
[2022-09-13 10:01] VITALS: BP 117/60; PULSE 60; RESP 18; O2SAT 99
== END 2022-09-13 10:03 | disposition home or self-care (01) ==
PROVIDERS: Emergency Provider Emergency Medicine
DX: R04.0 Epistaxis (principal); Z79.01 Long term (current) use of anticoagulants
CPT/HCPCS: 30901; 36415; 85025; 85610; 99283; 99284; A9270

== ENCOUNTER → 2024-07-04 08:05 | Outpatient (CLI) | payer OTHER, SELFPAY ==
[2022-03-11 00:32] VITALS: BMI 38.4
--- NOTE | 2024-07-04 08:08 | DI.ECHO.S_ITS ---
[facility] : : [address] : : [place] : : [id number] : : Phone: [phone] Echocardiogram Report + + :Name: MICHELE DAVIS Study Date: 07/04/2024 Height: 70 in : :[facility] ReadingLocation: Weight: 275 lb : : Gender: Male BSA: 2.4 m2 : :: 1945 Age: 79 yrs BP: 125/73 mmHg: :Reason For Study: ISCHEMIC HEART DISEASE : :Ordering Physician: MARLENI, : :GIULIANA Performed By: Bhargav Wright : :Referring: GIULIANA YEPEZ : + + Interpretation Summary The study quality was technically difficult. The ejection fraction is estimated to be 55-60%. Diastolic function could not be accurately assessed due to paced rhythm. The left atrium is severely dilated. The right ventricle is moderately dilated. The right ventricular systolic function is normal. The right atrium is moderately dilated. There is mild mitral regurgitation. There is moderate tricuspid regurgitation. Right ventricular systolic pressure is estimated to be 36 mmHg plus the clinically estimated CVP which cannot be estimated on this exam. The ascending aorta is mildly enlarged. Compared to the prior study 03/11/2022, the right ventricle now appears more dilated. Procedure: A two-dimensional transthoracic echocardiogram with color flow and Doppler was performed. Comparison is made with the echocardiogram of 03/11/2022. The study quality was technically difficult. The patient has a paced rhythm. Left Ventricle: The left ventricle is normal in size and wall thickness. There is no ventricular septal defect visualized. The ejection fraction is estimated to be 55-60%. There are no focal wall motion abnormalities. Diastolic function could not be accurately assessed due to paced rhythm. Right Ventricle: The right ventricle is moderately dilated. There is a pacemaker lead in the right ventricle. The right ventricular systolic function is normal. Atria: The left atrium is severely dilated. The right atrium is moderately dilated. There is a catheter/pacemaker lead seen in the right atrium. The interatrial septum is not well visualized. Mitral Valve: The mitral valve leaflets appear normal. There is no evidence of stenosis, fluttering, or prolapse. There is mild mitral regurgitation. Aortic Valve: The aortic valve is trileaflet. The aortic valve is slightly calcified. The aortic valve opens well. There is no aortic valve stenosis. There is trace aortic regurgitation. Tricuspid Valve: The tricuspid valve leaflets are thin and pliable. There is moderate tricuspid regurgitation. Right ventricular systolic pressure is estimated to be 36 mmHg plus the clinically estimated CVP which cannot be estimated on this exam. Pulmonic Valve: The pulmonic valve leaflets are thin and pliable; valve motion is normal. There is trace pulmonic regurgitation. Great Vessels: The aortic root is normal size. The ascending aorta is mildly enlarged. The pulmonary artery is normal size. The inferior vena cava was not visualized. Pericardium/ Pleura There is no pericardial effusion. MMode/2D Measurements & Calculations LVIDd: 5.8 cm LVOT diam: 2.2 cm LVIDs: 3.7 cm Ao root diam: 3.6 cm FS: 35.7 % asc Aorta Diam: 3.9 cm EPSS: 1.3 cm Ao Arch Diam (Prox Trans): 2.6 cm IVSd: 1.0 cm LVPWd: 1.0 cm LV ingram. diameter/BSA (cm/m^2): 2.4 LV sys. diameter/BSA (cm/m^2): 1.6 LA A2 area: 38.7 cm2 RA long axis: 5.8 cm LA A4 area: 39.8 cm2 RA area: 22.2 cm2 LA length (vol): 7.1 cm RA vol: 72.7 ml LA vol: 184.4 ml RA : 30.4 ml/m2 LA vol index: 77.1 ml/m2 RVD1 (basal): 4.5 cm RVD2 (mid): 3.8 cm TAPSE: 2.7 cm Doppler Measurements & Calculations Ao V2 max: 129.3 cm/sec LVOT Max Son: 92.5 cm/sec Ao V2 mean: 89.4 cm/sec LV V1 max P.4 mmHg Ao max P.7 mmHg LV V1 VTI: 21.1 cm Ao mean P.5 mmHg JEFFERY(I,D): 3.2 cm2 Ao V2 VTI: 25.9 cm JEFFERY(V,D): 2.8 cm2 sev ratio: 0.82 JEFFERY indexed to BSA (cm^2/m^2): 1.3 MV E max son: 108.1 cm/sec TR max son: 313.0 cm/sec MV A max son: 34.6 cm/sec TR max P.0 mmHg MV E/A: 3.1 PA V2 max: 81.3 cm/sec Med Peak E' Son: 5.4 cm/sec PA V2 mean: 57.0 cm/sec E/E' med: 20.0 PA mean P.5 mmHg Lat Peak E' Son: 5.6 cm/sec PA pr(Accel): 5.4 mmHg E/E' lat: 19.3 E/e' average: 19.6 MV dec time: 0.21 sec SV(LVOT): 83.3 ml Reading Physician:08:45 PM
== END ==
PROVIDERS: Referring Provider Chiropractor; Visit Provider Chiropractor
DX: I08.1 Rheumatic disorders of both mitral and tricuspid valves (principal); I25.9 Chronic ischemic heart disease, unspecified; I77.89 Other specified disorders of arteries and arterioles
CPT/HCPCS: 93306